=== PATIENT | male | born 1970 | race Caucasian/White ===

== ENCOUNTER 2016-10-25 08:24 | Inpatient (IN) | payer OTHER ==
[~2016-10-25] VITALS: Ht 198.1 cm; Wt 133.0 kg
[2016-10-25] VITALS (22 sets, daily range): BP systolic 91–133; BP diastolic 41–108
--- NOTE | ~2016-10-25 | 2DMMODE ---
[facility] [address] [place] [address] 2 D/M-MODE ECHOCARDIOGRAM Name: KATERINAGLO Hector Room #: 242-P ADM IN ..#: [id number] Admission: 10/25/16 Attend Phys: Navarro Jones Discharge: Date of : 72 Date of Service: 10/25/162058 Report #: [id number] THIS REPORT FOR: //name// APPROVED REPORT Study performed: 10/25/2016 18:38:06 EXAM: Comprehensive 2D, Doppler, and color-flow Echocardiogram Patient Location: ICU Room #: 242 Blood Pressure: 100/59 mmHg HR: 98 bpm Other Information Study Quality: Good Indications Diabetes Chest Pain 2D Dimensions IVC: 24.00 mm Volumes Left Atrial Volume (Systole) Single Plane 4CH: 85.32 mL Single Plane 2CH: 74.09 mL LA ESV Index: 32.00 mL/m2 Pulmonary Valve PV Peak Brennon.: 0.78 m/s PV Peak Gr.: 2.41 mmHg Tricuspid Valve TR Peak Brennon.: 3.23 m/s RAP Estimate: 10.00 mmHg TR Peak Gr.: 41.81 mmHg Left Ventricle Left ventricle is borderline dilated. There is akinesis in the apical wall. There is akinesis in the apical septal wall. There is severe hypokinesis in the apical lateral wall. There is moderate to severe hypokinesis in the mid-anterolateral wall. There is akinesis in the inferior wall. There is severe hypokinesis in the mid-anterior wall. There is severe hypokinesis in the posterior wall. There is normal [facility] [address] [place] [address] 2 D/M-MODE ECHOCARDIOGRAM Name: GLO BORGES Hector Room #: 242-P ADM IN [facility].#: [id number] Admission: 10/25/16 Attend Phys: Navarro Jones Discharge: Date of : 72 Date of Service: 10/25/162058 Report #: [id number] left ventricular wall thickness. Left ventricular ejection fraction is severely decreased. LVEF is 25-30%. Diastolic cannot be accurately assessed. Right Ventricle The right ventricle is normal size. The right ventricular systolic function is normal. Atria The left atrium size is normal. The right atrium size is normal. Aortic Valve The aortic valve is normal in structure. No aortic regurgitation is present. There is no aortic valvular stenosis. Mitral Valve The mitral valve is normal in structure. Moderate mitral regurgitation. No evidence of mitral valve stenosis. Tricuspid Valve The tricuspid valve is normal in structure. There is no tricuspid valve stenosis. Mild tricuspid regurgitation. Pulmonic Valve The pulmonary valve is normal in structure. There is no pulmonic valvular regurgitation. Great Vessels The aortic root is normal in size. IVC is dilated and collapses <50% with inspiration. Pericardium There is no pericardial effusion. <Conclusion> Left ventricle is borderline dilated. There is akinesis in the apical wall. There is akinesis in the apical septal wall. There is severe hypokinesis in the apical lateral wall. There is moderate to severe hypokinesis in the mid-anterolateral wall. There is akinesis in the inferior wall. There is severe hypokinesis in the mid-anterior wall. There is severe hypokinesis in the posterior wall. Left ventricular ejection fraction is severely decreased. [address] [address] 2 D/M-MODE ECHOCARDIOGRAM Name: GLO BORGES Room #: 242-P ADM IN M.R.#: [id number] Admission: 10/25/16 Attend Phys: Navarro Jones Discharge: Date of : 72 Date of Service: 10/25/162058 Report #: [id number] LVEF is 25-30%. The right ventricle is normal size. The right ventricular systolic function is normal. The aortic valve is normal in structure. The mitral valve is normal in structure. Moderate mitral regurgitation. The tricuspid valve is normal in structure. Mild tricuspid regurgitation. There is no tricuspid valve stenosis. There is no pericardial effusion. <ELECTRONICALLY SIGNED> By: Mike Ramon MD 10/25/162058 58 58 Mike Ramon MD /INF
--- NOTE | ~2016-10-25 | HC ---
[facility] [place] [address] CONSULTATION Name: GLO BORGES Room #: 242-P [facility] IN M.R.#: [id number] Admission: 10/25/16 Attend Phys: Wong De La Torre MD Discharge: 10/28/16 Date of : 72 Report #: [id number] THIS REPORT FOR: //name// CC: Win De La Torre DATE OF SERVICE: 10/26/2016 NEPHROLOGY CONSULTATION ATTENDING PHYSICIAN: Dr. De La Torre. REASON FOR CONSULTATION: Diabetic nephropathy in the setting of acute SD. HISTORY OF PRESENT ILLNESS: This 46-year-old gentleman has had several months' history of worsening shortness of breath and is a heavy cigarette smoker, 1-2 packs a day plus marijuana. Over the last couple of weeks, his shortness of breath has gotten worse and he has started to have some wheezing. His shortness of breath worsened acutely yesterday morning, with some chest "tenderness", but no real feeling of pressure and he came to the emergency room feeling breathless. He was found to have evidence of congestive heart failure, then an elevated troponin. He was evaluated for pulmonary embolism and had 2 different dye loads for a CT angiogram looking for pulmonary emboli, but these did not show pulmonary emboli. Eventually, his troponin elevated and an echocardiogram showed diffuse hypokinesis with an ejection fraction of only 20% to 25%. He has known proteinuria and had been started on lisinopril for that by a retail sales manager at [facility] fairly recently. As far as he knows, his overall renal function has been close to normal. 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 Also had disk surgeries for low back syndrome, remote CVA with mild left hemiparesis and a possible history of hypertension. HOME MEDICATIONS: As listed include aspirin 81 mg daily, atorvastatin 40 mg daily, insulin, lisinopril 10 mg daily, omeprazole 40 mg daily, Percocet, Lyrica 150 mg b.i.d., tamsulosin 0.4 mg daily, Zanaflex p.r.n. and Chantix. FAMILY HISTORY: Sister and mother with diabetes. No complications noted. No heart disease in the family. SOCIAL HISTORY: Cigarettes and marijuana as mentioned. REVIEW OF SYSTEMS: GENERAL: He has been feeling somewhat poorly. EYES: His vision is fine. He has had no diagnosis or evidence of retinopathy. [facility] [address] [place] [address] CONSULTATION Name: GLO BORGES Room #: 242-P [facility] IN ..#: [id number] Admission: 10/25/16 Attend Phys: Wong De La Torre MD Discharge: 10/28/16 Date of : 72 Report #: [id number] He has seen an hand polisher. ENT: Hearing okay, swallows okay. Denies mouth sores or ulcers. ENDOCRINE: Diabetes, as mentioned. RESPIRATORY: Easily short-winded with chronic cough. No hemoptysis. CARDIAC: No previous history of heart problems or arrhythmias. GASTROINTESTINAL: He has had constipation, but no nausea, vomiting, diarrhea, bloody stool or hematemesis. GENITOURINARY: A little bit of difficulty with his urinary stream and he has been put on Flomax. NEUROLOGIC: Poorly defined remote possible CVA and neuropathy, particularly in his feet. PHYSICAL EXAMINATION: GENERAL: This is a very anxious gentleman seen in the ICU, feeling like he cannot get his breath. His O2 sat is okay. SKIN: Unremarkable. SKELETAL: Slightly overweight. HEENT: Extraocular movements are full. Vision grossly intact. No scleral icterus. Hearing intact. Mucous membranes slightly dry. NECK: Supple. Neck veins do not appear to be distended, but the patient has difficulty sitting still for examination. CHEST: Shows crackles at the lung bases. HEART: Regular. ABDOMEN: Soft and nontender. EXTREMITIES: Show trace to 1+ peripheral edema. NEUROLOGIC: Shows some numbness in the feet. LABORATORY DATA: Urinalysis showed 2+ proteinuria. Hemoglobin was 14, down to 12.8; platelets are 290,000; white count 17.2 and no bands. Sodium 135, potassium 4.3, chloride 101, bicarbonate 23, BUN 23 and creatinine 1.4. Albumin 3.4. ASSESSMENT AND PLAN: 1. Diabetic nephropathy. He has underlying diabetic nephropathy with proteinuria. He has been on lisinopril. Overall, his renal function is close to normal. He is a big fellow. Initial creatinine was 1.3. 2. Acute myocardial infarction. He has got an elevated troponin and markedly abnormal echo. He has gotten 2 dye loads and he is in some degree of congestive heart failure. Diuresis is appropriately being done. He did get a couple of liters of fluids initially and this may help protect him from dye nephropathy. He is on Flomax and I will continue that and we will check him with bladder scans to see if he is emptying his bladder. 3. Diabetes mellitus with peripheral neuropathy and nephropathy. 4. Cigarette smoking with probable underlying chronic obstructive pulmonary disease. 5. History of left forefoot amputation for diabetic foot infection. [facility] [address] [place] [address] CONSULTATION Name: GLO BORGES Room #: 242-P DIS IN M.R.#: [id number] Admission: 10/25/16 Attend Phys: Wong De La Torre MD Discharge: 10/28/16 Date of : 72 Report #: [id number] 6. History of pancreatitis. 7. History of low back surgery for disk disease. <ELECTRONICALLY SIGNED> By: Chandu Bedoya MD 10/29/16 1114 1118 2326 Chandu Bedoya MD /nt
--- NOTE | ~2016-10-25 | EKG ---
[address] [place] [address] ELECTROCARDIOGRAM REPORT Name: GLO BORGES Room #: 242-P ADM IN M.R.#: [id number] Admission: 10/25/16 Attend Phys: Wong De La Torre MD Discharge: Date of : 72 Report #: [id number] THIS REPORT FOR: //name// [facility] ED Test Date: 2016-10-25 Test Time: 09:05:48 Pat Name: GLO BORGES Department: Room: 242 Gender: M Director Of Admissions: Joel ROBERT : 1970 Requested By: Enedina Blanton Order Number: [id number] MD: Cheko Nguyễn Measurements Intervals Bureau Rate: 125 P: 49 MD: 143 QRS: 25 QRSD: 103 T: 184 QT: 313 QTc: 452 Interpretive Statements Sinus tachycardia Probable anteroseptal infarct, recent Lateral ST and T wave abnormality No previous ECG available for comparison Electronically Signed On 10-27-2016 8:31:42 CDT by Cheko Nguyễn [email or web address] <ELECTRONICALLY SIGNED> By: Cheko Nguyễn MD, [facility] 10/27/16 0831 D: [id number] 4 Cheko Nguyễn MD, FAC /EPI
--- NOTE | ~2016-10-25 | CATHLAB ---
[facility] [address] [address] INVASIVE PROCEDURE REPORT Name: GLO BORGES Room #: 242-P [facility] IN M.R.#: [id number] Admission: 10/25/16 Attend Phys: Navarro Jones Discharge: 10/28/16 Date of : 72 Date of Service: 10/28/16 0955 Report #: [id number] THIS REPORT FOR: //name// CC: Win De La Torre DATE OF SERVICE: 10/27/2016 INDICATIONS: This is a 46-year-old male patient with non-ST segment elevation myocardial infarction and pulmonary edema. PROCEDURES: 1. Left heart catheterization. 2. Selective left and right coronary angiography. 3. Measurement of left ventricular end diastolic pressures. 4. Supervision of conscious sedation. FABRIC FINISHER: Mike Ramon M.D. BRIEF DESCRIPTION OF PROCEDURE: After informed consent was obtained, the patient was brought to the cardiac catheterization laboratory in stable condition. The patient's left groin was prepped and draped in the usual sterile manner after which lidocaine was then instilled. Utilizing a modified Seldinger technique, the left femoral artery was then accessed. Under fluoroscopic visualization using selective coronary catheters, the right and left coronaries were opacified and visualized. The right ventriculogram was likewise imaged per standard protocol with EDP being measured. Subsequent to this, the sheath was removed, hemostasis achieved. The patient tolerated the procedure well. There were no complications. FINDINGS: 1. Rhythm: The patient's rhythm was sinus throughout the entire procedure. 2. Hemodynamics: a. Aortic pressure 138/74. b. Left ventricular end diastolic pressure is 40-45. 3. Fluoroscopy: Under fluoroscopic visualization, there was extensive calcific plaquing along the epicardial coronary arteries with no calcific plaquing on the valvular or intramyocardial structures of the heart. 4. Angiography: This is a left coronary dominant system. a. Left main is of normal origin and caliber, trifurcates in left anterior descending, ramus intermedius and left circumflex. He has mild luminal irregularities without high grade flow limiting lesions. b. Left anterior descending is a small caliber type 2-vessel, which has a -95% lesion in its proximal mid portion. It then tapers down to a less than 0.5 mm vessel as a string as it courses in the anterior interventricular sulcus. The first diagonal branch is a small caliber vessel, which has a [facility] [address] [place] [address] INVASIVE PROCEDURE REPORT Name: GLO BORGES Room #: 242-P [facility] IN ..#: [id number] Admission: 10/25/16 Attend Phys: Navarro Jones Discharge: 10/28/16 Date of : 72 Date of Service: 10/28/16 0955 Report #: [id number] proximal lesion and diffuse irregularities throughout its course. c. Left circumflex is a small moderate caliber vessel proximally and rapidly tapers to a small string like terminal portion of the posterior wall, giving rise to posterior descending artery. Posterolateral branch and posterior descending artery have 95% stenosis proximally. These vessels are less than 0.5 mm in diameter. The first marginal branch is subtotally occluded. The second marginal branch has diffuse irregularities of at least 50-60% with a focal segment of 90%. This vessel is also less than 0.5 mm in diameter. d. Ramus intermedius is a small, highly diffusely diseased vessel, which is less than 0.5 mm in diameter. e. Right coronary artery is a small nondominant vessel with proximal high-grade lesion. It then terminates at the acute margin giving rise to RV marginal branch, which is diffusely diseased, at least 60% irregularities. IMPRESSION: 1. Coronary artery disease, severe, diffuse with focal high grade lesions in diminutive vessels, not amenable to prison results with percutaneous or surgical revascularization. 2. Abnormal hemodynamics with elevated left ventricular end-diastolic pressures. <ELECTRONICALLY SIGNED> By: Mike Ramon MD 10/30/16 1343 0955 2334 Mike Ramon MD /nt
--- NOTE | ~2016-10-25 | HC ---
[facility] [place] [address] CONSULTATION Name: GLO BORGES Room #: 242-P [facility] IN M.R.#: [id number] Admission: 10/25/16 Attend Phys: Wong De La Torre MD Discharge: Date of : 72 Report #: [id number] THIS REPORT FOR: //name// CC: Win De La Torre PRIMARY PHYSICIAN: Dr. Garcia at [facility]. REFERRAL PHYSICIAN: Dr. De La Torre. REASON FOR REFERRAL: Acute respiratory distress. HISTORY OF PRESENT ILLNESS: The patient is a 46-year-old white male who presents to the emergency room with progressive dyspnea. Since admission, he was found to be in severe respiratory distress. A pulmonary consultation was requested. The patient smokes about 1 to 2 packs a day. He also smokes marijuana. However, has never been diagnosed with lung disease. He states that he was in his usual state of health until about May of this year, he started to develop episodic chest discomfort, cough and dyspnea. Over the last few weeks, dyspnea has progressively worsened where he presented to emergency room. Otherwise, denies any chest pain, productive cough, hemoptysis, nausea, vomiting, diarrhea. He has longstanding history of diabetes with presumed peripheral vascular disease, undergoing partial amputation of his left foot. In the interim, the patient underwent a CT chest angiogram, which showed no evidence of pulmonary embolus. Increase in pulmonary perivascular markings are noted. Chest x-ray shows increased vasculatures markings, otherwise no obvious infiltrates. Leg Doppler ultrasound was negative for DVT. PAST MEDICAL HISTORY: Notable for diabetes mellitus, with partial amputation of the left foot, allergic rhinitis, hypertension, tobacco abuse. PAST SURGICAL HISTORY: As mentioned above. ALLERGIES: Penicillin, which causes severe swelling. HOME MEDICATIONS: Aspirin, Zanaflex, Flomax, loratadine, Lyrica, Lipitor, Zestril, Chantix, omeprazole. FAMILY HISTORY: Noncontributory. [facility] [address] [place] [address] CONSULTATION Name: GLO BORGES Room #: 242-[facility] IN [facility].#: [id number] Admission: 10/25/16 Attend Phys: Wong De La Torre MD Discharge: Date of : 72 Report #: [id number] SOCIAL HISTORY: He is engaged. Tobacco use as mentioned above. Denies any tobacco abuse. He does smoke marijuana. He has been disabled due to diabetes and peripheral vascular disease along with partial amputation. REVIEW OF SYSTEMS: As mentioned above, otherwise 10-point system review negative. PHYSICAL EXAMINATION: GENERAL: He is awake, alert, in moderate respiratory distress. VITAL SIGNS: Temperature is 98 degrees Fahrenheit, pulse is 106, it was at 148, respiratory rate is 20s up to 30s, blood pressure is 94/61 mmHg, saturation is 90%. HEENT: Normocephalic, atraumatic. NECK: Supple, without any lymphadenopathy or thyromegaly. CHEST: Breath sounds are fair, mild coarse breath sounds at the bases. CARDIOVASCULAR: Heart sounds are distant. No obvious murmurs or gallop. There is no JVD, no carotid bruit. Pulses are 2+/4+ bilaterally. ABDOMEN: Soft, nontender, no organomegaly or masses felt. GENITOURINARY AND RECTAL: Deferred. EXTREMITIES: Remarkable for partial left foot amputation, otherwise no cyanosis, clubbing or edema. LABORATORY DATA: CT chest angiogram, chest x-ray and leg Doppler ultrasound as mentioned above. Lactate is 2.9 and NT-pro brain natriuretic peptide is 2082. D-dimer is 1.6. Troponin 0.5. EKG shows sinus tachycardia. Sodium 136, potassium 4.1, chloride 100, CO2 is 23, creatinine is 1.3, BUN is 14, glucose is 279. WBC is 17,200, hemoglobin is 14.0. Troponin is 0.5 as mentioned above. Albumin 3.4. WBC again 17,200 without a left shift. IMPRESSION: 1. Acute hypoxic respiratory failure in this 46-year-old white male. CT chest angiogram shows no evidence of pulmonary embolus or even infiltrates. Leg Doppler ultrasound was negative. His inflammatory mediators are elevated including D-dimer. BNP is also elevated. The patient has a history of tobacco abuse. I went through his CT chest angiogram, showing diffuse peribronchiolar thickening. Cause of the patient's profound respiratory distress is unclear. Findings per CT chest angiogram suggest possible pulmonary venous hypertension. With his history of tobacco use, the patient could have a component of chronic obstructive pulmonary disease. Viral or atypical infectious process is also considered. Collagen vascular disease is a remote possibility. 2. Tobacco abuse with possible chronic obstructive pulmonary disease. [facility] [address] [place] [address] CONSULTATION Name: GLO BORGES Hector Room #: 242-P ADM IN M.R.#: [id number] Admission: 10/25/16 Attend Phys: Wong De La Torre MD Discharge: Date of : 72 Report #: [id number] 3. Renal insufficiency, presume acute. In light of the patient receiving contrast for CT chest angiogram, we will need to monitor this closely. IV fluids and maintaining good urine output is recommended. 4. Diabetes mellitus type 2 with hyperglycemia. Electrolytes on admission revealed slight increase in anion gap. Anion gap is actually relatively normal with bicarbonate at 23. 5. Leukocytosis as mentioned above. This might represent either reactive or possible infectious processes including a typical infection. 6. Elevated troponin, suspect non-ST wave myocardial infarction. The patient does have risk factor for coronary artery disease with a history of tobacco use, diabetes mellitus. RECOMMENDATIONS: We would treat for presumed chronic obstructive lung disease with steroids and bronchodilators. We will start broad-spectrum antibiotics. Continue noninvasive ventilation as tolerated. Currently, he is having difficulty with. We will discontinue its use and keep saturation at 90% above with nasal canula or ____. <ELECTRONICALLY SIGNED> By: Chester Davila MD 10/27/16 1146 1733 0028 Chester Davila MD /nt
[2016-10-25 08:42] LABS: HEMATOCRIT 41.2 % (42.0-52.0); MCH 32.5 pg (26.0-34.0); MCV 95.7 fL (80.0-100.0); PLATELET COUNT 409 thou/uL (150-400); RDW 14.1 % (10.5-14.5); WBC 17.2 thou/uL (4.0-11.0)
[2016-10-25 08:43] LABS: MANUAL DIFF YES
[2016-10-25 08:54] LABS: ANION GAP 13 mmol/L (7-16); BUN 14 mg/dL (7-18); CALCIUM 8.4 mg/dL (8.5-10.1); CHLORIDE 100 mmol/L (98-107); CO2 23 mmol/L (21-32); CREATININE 1.3 mg/dL (0.7-1.3); GLUCOSE 379 mg/dL (74-106); POTASSIUM 4.1 mmol/L (3.5-5.1); SODIUM 136 mmol/L (136-145)
[2016-10-25 09:01] LABS: ALBUMIN 3.4 g/dL (3.4-5.0); ALKALINE PHOSPHATASE 110 U/L (46-116); DIRECT BILIRUBIN < 0.1 mg/dL (<0.1-0.3); SGOT 16 U/L (15-37); SGPT 19 U/L (30-65); TOTAL BILIRUBIN 0.3 mg/dL (<0.1-1.0); TOTAL PROTEIN 7.7 g/dL (6.4-8.2); TROPONIN-I 0.07 ng/mL (<0.04-0.07)
[2016-10-25 09:16] LABS: ABSOLUTE NEUTROPHILS 5.2 thou/uL (1.4-8.2); ATYPICAL LYMPHS 3 %; TOTAL CELL COUNT 100
[2016-10-25 10:02] LABS: URINE BILIRUBIN NEGATIVE (Negative); URINE BLOOD 2+ (Negative); URINE COLOR YELLOW; URINE GLUCOSE-RANDOM* 3+ (Negative); URINE KETONES NEGATIVE (Negative); URINE NITRITE NEGATIVE (Negative); URINE PROTEIN (DIPSTICK) 2+ (Negative); URINE SPECIFIC GRAVITY 1.025 (1.003-1.035); URINE UROBILINOGEN 0.2 E.U./dl (0.2-1.0)
[2016-10-25 10:14] LABS: CASTS None Seen /LPF (None Seen); CRYSTALS None Seen /LPF (None Seen); SQUAMOUS 4-10 Moderate /LPF (0-3); URINE RBC 3-10 Few /HPF (0-2); URINE WBC 0-5 Rare /HPF (0-5)
[2016-10-25 10:15] LABS: AMP/METHAMP Negative (Negative); BACTERIA 1-9 Few /HPF (None Seen); BARBITURATES Negative (Negative); BENZODIAZEPINES Negative (Negative); COCAINE Negative (Negative); METHADONE Negative (Negative); OPIATES Negative (Negative); PCP Negative (Negative); THC POSITIVE (Negative)
[2016-10-25] MEDS ORDERED: ZANAFLEX4 M1 PO (10:37)
[2016-10-25] MEDS ORDERED: FLOMAX0.4 MG PO (10:37)
[2016-10-25] MEDS ORDERED: ASPIR 8181 MG PO (10:37)
[2016-10-25] MEDS ORDERED: ATORVASTATIN CA40 MG PO (10:38)
[2016-10-25] MEDS ORDERED: LISINOPRIL10 MG PO (10:38)
[2016-10-25] MEDS ORDERED: LYRICA150 MG PO (10:38)
[2016-10-25] MEDS ORDERED: LORATIDINE 10 M10 M1 PO (10:38)
[2016-10-25] MEDS ORDERED: OMEPRAZOLE40 MG PO (10:39)
[2016-10-25] MEDS ORDERED: CHANTIX1 EACH PO (10:39)
[2016-10-25 12:00] LABS: APTT 24.2 Seconds (24.5-32.8)
[2016-10-25] MEDS ORDERED: LANTUS SUBQ (16:18)
[2016-10-25] MEDS ORDERED: PERCOCET 10-321 EACH PO (16:19)
[2016-10-25] MEDS ORDERED: HUMALOG100 UNIT/1 SUBQ (16:19)
[2016-10-25] MEDS ORDERED: SENNA8.6 MG PO (16:30)
[2016-10-26] VITALS (26 sets, daily range): BP systolic 86–150; BP diastolic 36–104
[2016-10-26 02:33] LABS: HEMATOCRIT 37.8 % (42.0-52.0); HEMOGLOBIN 12.8 gm/dL (14.0-18.0); MCH 32.2 pg (26.0-34.0); MCV 94.8 fL (80.0-100.0); RBC 3.98 mil/uL (4.50-6.00); RDW 13.9 % (10.5-14.5); WBC 13.4 thou/uL (4.0-11.0)
[2016-10-26 03:06] LABS: CALCIUM 7.6 mg/dL (8.5-10.1); CREATININE 1.4 mg/dL (0.7-1.3); POTASSIUM 4.3 mmol/L (3.5-5.1)
[2016-10-27] VITALS (33 sets, daily range): BP systolic 78–123; BP diastolic 40–81
[2016-10-27 04:09] LABS: GLYCOHEMOGLOBIN (HGB A1C) 9.5 % (4.8-5.6)
[2016-10-27 05:37] LABS: HEMATOCRIT 34.1 % (42.0-52.0); HEMOGLOBIN 11.7 gm/dL (14.0-18.0); MCH 32.5 pg (26.0-34.0); MCHC 34.5 g/dL (28.0-37.0); MCV 94.2 fL (80.0-100.0); PLATELET COUNT 274 thou/uL (150-400); RBC 3.62 mil/uL (4.50-6.00); RDW 13.8 % (10.5-14.5); WBC 16.5 thou/uL (4.0-11.0)
[2016-10-27 05:38] LABS: MANUAL DIFF YES
[2016-10-27 05:48] LABS: ALBUMIN 2.9 g/dL (3.4-5.0); CALCIUM 8.1 mg/dL (8.5-10.1); CREATININE 1.3 mg/dL (0.7-1.3)
[2016-10-27 08:51] LABS: ABSOLUTE NEUTROPHILS 15.3 thou/uL (1.4-8.2); TOTAL CELL COUNT 100
[2016-10-27 08:52] LABS: ANISOCYTOSIS SLIGHT
[2016-10-28] VITALS (19 sets, daily range): BP systolic 84–126; BP diastolic 45–84
[2016-10-28 04:41] LABS: HEMATOCRIT 33.3 % (42.0-52.0); HEMOGLOBIN 11.6 gm/dL (14.0-18.0); MCH 32.9 pg (26.0-34.0); MCHC 34.8 g/dL (28.0-37.0); MCV 94.7 fL (80.0-100.0); RBC 3.51 mil/uL (4.50-6.00); RDW 13.7 % (10.5-14.5); WBC 13.5 thou/uL (4.0-11.0)
[2016-10-28 04:59] LABS: ALBUMIN 2.9 g/dL (3.4-5.0); CALCIUM 7.6 mg/dL (8.5-10.1); CREATININE 1.5 mg/dL (0.7-1.3); PHOSPHORUS 3.3 mg/dL (2.5-4.9); POTASSIUM 4.3 mmol/L (3.5-5.1)
[2016-10-28] MEDS ORDERED: COREG3.125 MG PO (11:16)
[2016-10-28] MEDS ORDERED: LASIX 20 MG TAB20 MG PO (11:16)
[2016-10-28] MEDS ORDERED: NITROGLYCERIN0.4 MG SUBLING (11:17)
[2016-10-28] MEDS ORDERED: KLOR-CON 1010 MEQ PO (11:17)
[2016-10-28] MEDS ORDERED: IMDUR 30 MG TAB30 M1 PO (11:17)
[2016-10-28] MEDS ORDERED: XANAX1 MG PO (11:32)
[2016-10-28 23:07] LABS: INFLUENZA B Negative (Negative); METAPNEUMOVIRUS Negative (Negative)
== END 2016-10-28 12:39 | disposition home or self-care (01) | DRG 871 ==
LOC: ER 08:24 → EROBS 12:10 → ICU 12:10
PROVIDERS: Emergency Medicine; Family Medicine; Internal Medicine Nephrology; Internal Medicine Pulmonary Disease
DX: A41.9 Sepsis, unspecified organism (principal); I50.21 Acute systolic (congestive) heart failure; I21.4 Non-ST elevation (NSTEMI) myocardial infarction; J18.9 Pneumonia, unspecified organism; J96.01 Acute respiratory failure with hypoxia; N17.9 Acute kidney failure, unspecified; I69.354 Hemiplegia and hemiparesis following cerebral infarction affecting left non-dominant side; I13.0 Hypertensive heart and chronic kidney disease with heart failure and stage 1 through stage 4 chronic kidney disease, or unspecified chronic kidney disease; I73.9 Peripheral vascular disease, unspecified; R59.9 Enlarged lymph nodes, unspecified; E11.65 Type 2 diabetes mellitus with hyperglycemia; I25.10 Atherosclerotic heart disease of native coronary artery without angina pectoris; F17.210 Nicotine dependence, cigarettes, uncomplicated; E66.9 Obesity, unspecified; T38.0X5A Adverse effect of glucocorticoids and synthetic analogues, initial encounter; J44.9 Chronic obstructive pulmonary disease, unspecified; E11.40 Type 2 diabetes mellitus with diabetic neuropathy, unspecified; K21.9 Gastro-esophageal reflux disease without esophagitis; M13.842 Other specified arthritis, left hand; E11.22 Type 2 diabetes mellitus with diabetic chronic kidney disease; N18.9 Chronic kidney disease, unspecified; F12.90 Cannabis use, unspecified, uncomplicated; K59.09 Other constipation; M13.841 Other specified arthritis, right hand; E11.42 Type 2 diabetes mellitus with diabetic polyneuropathy; Y92.89 Other specified places as the place of occurrence of the external cause; Z88.0 Allergy status to penicillin; Z79.82 Long term (current) use of aspirin; Z79.899 Other long term (current) drug therapy; Z79.4 Long term (current) use of insulin; Z89.432 Acquired absence of left foot; Z68.33 Body mass index [BMI] 33.0-33.9, adult; Z87.898 Personal history of other specified conditions; Z83.3 Family history of diabetes mellitus
CPT/HCPCS: 10078

== ENCOUNTER 2017-09-14 11:40 | Emergency (ER) | payer OTHER ==
[~2017-09-14] VITALS: Ht 198.1 cm; Wt 127.0 kg
[~2017-09-14 11:40] MED LIST: ASPIR 8181 MG PO; ATORVASTATIN CA40 MG PO; CHANTIX1 EACH PO; COREG3.125 MG PO; FLOMAX0.4 MG PO; HUMALOG100 UNIT/1 SUBQ; IMDUR 30 MG TAB30 M1 PO; KLOR-CON 1010 MEQ PO; LANTUS SUBQ; LASIX 20 MG TAB20 MG PO; LISINOPRIL10 MG PO; LORATIDINE 10 M10 M1 PO; LYRICA150 MG PO; NITROGLYCERIN0.4 MG SUBLING; OMEPRAZOLE40 MG PO; PERCOCET 10-321 EACH PO; SENNA8.6 MG PO; XANAX1 MG PO; ZANAFLEX4 M1 PO
[2017-09-14 13:29] LABS: ABSOLUTE NEUTROPHILS 5.1 thou/uL (1.4-8.2); BASOPHILS 1.7 % (0.0-2.0); EOSINOPHILS 2.4 % (0.0-3.0); HEMATOCRIT 42.3 % (42.0-52.0); HEMOGLOBIN 15.1 gm/dL (14.0-18.0); LYMPHOCYTES 29.9 % (24.0-44.0); MCH 33.5 pg (26.0-34.0); MCHC 35.6 g/dL (28.0-37.0); MCV 94.1 fL (80.0-100.0); MONOCYTES 6.4 % (1.0-8.0); PLATELET COUNT 205 thou/uL (150-400); POLYS 59.6 % (36.0-66.0); RDW 13.5 % (10.5-14.5); WBC 8.6 thou/uL (4.0-11.0)
[2017-09-14 13:35] LABS: CALCIUM 8.6 mg/dL (8.5-10.1); CREATININE 1.2 mg/dL (0.7-1.3); POTASSIUM 4.4 mmol/L (3.5-5.1)
[2017-09-14] MEDS ORDERED: CLEOCIN HCL150 MG PO (14:34)
[2017-09-14] MEDS ORDERED: TRAMADOL 50 MG50 MG PO (15:12)
[2017-09-14 15:18] VITALS: BP 115/68
== END 2017-09-14 15:21 | disposition home or self-care (01) ==
LOC: ER 11:40
PROVIDERS: Nurse Practitioner Family
DX: E11.621 Type 2 diabetes mellitus with foot ulcer (principal); E87.1 Hypo-osmolality and hyponatremia; L03.115 Cellulitis of right lower limb; F17.210 Nicotine dependence, cigarettes, uncomplicated; K21.9 Gastro-esophageal reflux disease without esophagitis; K59.09 Other constipation; E11.40 Type 2 diabetes mellitus with diabetic neuropathy, unspecified; M13.842 Other specified arthritis, left hand; M13.841 Other specified arthritis, right hand; Z88.0 Allergy status to penicillin; Z86.73 Personal history of transient ischemic attack (TIA), and cerebral infarction without residual deficits; Z79.4 Long term (current) use of insulin

== ENCOUNTER 2018-02-11 13:59 | Emergency (ER) | payer OTHER ==
[~2018-02-11] VITALS: Ht 198.1 cm; Wt 104.3 kg
[~2018-02-11 13:59] MED LIST changes: +CLEOCIN HCL150 MG PO; +TRAMADOL 50 MG50 MG PO
[2018-02-11 14:42] LABS: ABSOLUTE NEUTROPHILS 6.6 thou/uL (1.4-8.2); BASOPHILS 1.1 % (0.0-2.0); HEMATOCRIT 45.4 % (42.0-52.0); HEMOGLOBIN 15.7 gm/dL (14.0-18.0); LYMPHOCYTES 21.8 % (24.0-44.0); MCH 33.3 pg (26.0-34.0); MCHC 34.7 g/dL (28.0-37.0); MONOCYTES 6.3 % (1.0-8.0); PLATELET COUNT 224 thou/uL (150-400); POLYS 67.8 % (36.0-66.0); RBC 4.73 mil/uL (4.50-6.00); RDW 13.8 % (10.5-14.5); WBC 9.8 thou/uL (4.0-11.0)
[2018-02-11 14:53] LABS: CALCIUM 8.5 mg/dL (8.5-10.1); POTASSIUM 4.6 mmol/L (3.5-5.1)
[2018-02-11 15:00] LABS: ALBUMIN 2.4 g/dL (3.4-5.0); TOTAL BILIRUBIN 0.3 mg/dL (<0.1-1.0); TOTAL PROTEIN 6.1 g/dL (6.4-8.2)
[2018-02-11 15:50] LABS: URINE BILIRUBIN NEGATIVE (Negative); URINE BLOOD 2+ (Negative); URINE COLOR YELLOW; URINE GLUCOSE-RANDOM* 3+ (Negative); URINE KETONES NEGATIVE (Negative); URINE LEUKOCYTES-REFLEX NEGATIVE (Negative); URINE NITRITE-REFLEX NEGATIVE (Negative); URINE PROTEIN (DIPSTICK) 3+ (Negative); URINE SPECIFIC GRAVITY >= 1.030 (1.005-1.035); URINE UROBILINOGEN 0.2 E.U./dl (0.2-1.0)
[2018-02-11 15:52] LABS: URINE CLARITY HAZY
[2018-02-11 15:55] LABS: SQUAMOUS None Seen /LPF (0-3); URINE RBC 3-10 Few /HPF (0-2); URINE WBC-REFLEX 0-5 Rare /HPF (0-5)
[2018-02-11 15:56] LABS: BACTERIA-REFLEX 1-9 Few /HPF (None Seen); HYALINE CASTS 0-3 Few /LPF (None Seen)
[2018-02-11 15:57] LABS: CRYSTALS None Seen /LPF (None Seen); MUCUS 4-6 Moderate strn/LPF (None Seen)
[2018-02-11] MEDS ORDERED: LIORESAL 10 MG10 MG PO (16:06)
[2018-02-11] MEDS ORDERED: DEMADEX20 MG PO (16:06)
[2018-02-11] MEDS ORDERED: ZOFRAN4 MG PO (16:44)
[2018-02-11] MEDS ORDERED: TRAMADOL 50 MG50 MG PO (16:44)
[2018-02-11] MEDS ORDERED: BENTYL 20 MG TA20 M1 PO (16:44)
[2018-02-11] MEDS ORDERED: FLAGYL500 MG PO (16:44)
[2018-02-11] MEDS ORDERED: XARELTO20 MG PO (17:04)
== END 2018-02-11 17:43 | disposition home or self-care (01) ==
LOC: ER 13:59
PROVIDERS: Emergency Medicine
DX: K52.9 Noninfective gastroenteritis and colitis, unspecified (principal); F17.210 Nicotine dependence, cigarettes, uncomplicated; K21.9 Gastro-esophageal reflux disease without esophagitis; E11.40 Type 2 diabetes mellitus with diabetic neuropathy, unspecified; G62.9 Polyneuropathy, unspecified; M19.042 Primary osteoarthritis, left hand; M19.041 Primary osteoarthritis, right hand; Z86.73 Personal history of transient ischemic attack (TIA), and cerebral infarction without residual deficits; Z88.0 Allergy status to penicillin; Z79.4 Long term (current) use of insulin

== ENCOUNTER 2018-06-01 09:04 | Inpatient (IN) | payer OTHER ==
[~2018-06-01] VITALS: Ht 198.1 cm; Wt 131.1 kg
--- NOTE | ~2018-06-01 | P ---
[facility] [place] [address] PROCEDURE REPORT Name: KATERINAGLO EVANGELISTA Room #: 221-P [facility] IN M.R.#: [id number] Admission: 06/01/18 Attend Phys: Vikash Avila MD Discharge: 06/03/18 Date of : 72 Report #: [id number] THIS REPORT FOR: //name// CC: Vikash GALARZA Skip Galarza INPATIENT COLONOSCOPY BRIEF HISTORY: The patient is a 47-year-old male who was admitted to [facility] with rectal bleeding. He has a history of a CT scan done several months ago, which revealed thickening of the sigmoid colon and the rectum. Combined with his rectal bleeding, there is concern he may have inflammatory bowel disease. PREOPERATIVE DIAGNOSES: Rectal bleeding and abnormal CT of the colon. POSTOPERATIVE DIAGNOSES: Rectal bleeding and abnormal CT of the colon. MEDICATIONS: Deep sedation with propofol per anesthesia. SPECIMEN: None. ESTIMATED BLOOD LOSS: None. PROCEDURE: Colonoscopy to mid transverse colon. FINDINGS: Prior to propofol sedation, procedure of colonoscopy discussed with the patient as well as potential risks and its complications. He indicates he understands and desires to proceed. DESCRIPTION OF PROCEDURE: With the patient in left lateral decubitus position, digital examination was completed which revealed no abnormalities. Subsequently, Pentax video colonoscope was introduced into the rectum and advanced under direct vision. As we advanced the scope, we ran into pools of liquidy yellow stool material. There was some particulate matter, which would not allow simply aspirate away all the liquidy material. As we advanced the scope into the transverse colon, in particular the mid transverse colon, the prep became so bad that we could not safely advance the scope forward. At that point, the scope was slowly withdrawn and careful circumferential views obtained. We tried to clean up as well as we could, but because of particulate matter, the scope kept clogging. As we withdrew the scope, we could wash and irrigate and see many areas of mucosa, but not all the mucosa could be visualized due to the poor prep. However, within the limitations of prep, which was a little bit better in the descending and sigmoid colon, the mucosa visualized was within normal limits. There was no evidence of inflammatory bowel disease. Also, no blood was seen during this examination. The scope was [address] [address] PROCEDURE REPORT Name: KATERINAGLO EVANGELISTA Room #: 221-P DIS IN M.R.#: [id number] Admission: 06/01/18 Attend Phys: Vikash Avila MD Discharge: 06/03/18 Date of : 72 Report #: [id number] withdrawn in the rectum, which was cleaned up fairly well. No mucosal abnormalities were seen. Upon retroflexion, no abnormalities were seen. I did not see evidence of hemorrhoids. Scope was withdrawn. The patient tolerated the procedure well. DISPOSITION: Colonoscopy not completed of the cecum due to poor prep. With regards to bleeding, no blood or bleeding site was seen. With regard to the abnormal CT, no endoscopic evidence of inflammatory bowel disease in the descending or sigmoid colon or the rectum. However, this exam, due to poor prep is an inadequate exam for colorectal screening and the patient should return at a later date for a well prep colonoscopy for colorectal screening. <ELECTRONICALLY SIGNED> By: Win Hoff MD 06/04/18 1030 1250 15 Win Hoff MD /nt
--- NOTE | ~2018-06-01 | EKG ---
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: : 1970 Requested By: Andriy Lafleur Order Number: [id number] MD: Silvestre Petit Measurements Intervals [place] Rate: 98 P: 43 NE: 162 QRS: 4 QRSD: 86 T: 89 QT: 339 QTc: 433 Interpretive Statements Sinus rhythm Probable left atrial enlargement Anterior infarct, old Nonspecific T abnormalities, lateral leads Compared to ECG 10/25/2016 09:05:48 Electronically Signed On 06-01-2018 13:02:54 REGIONAL PLANNER by Silvestre Petit [email or web address] <ELECTRONICALLY SIGNED> By: Silvestre Petit MD 06/01/18 1302 7 Silvestre Petit MD /AJVIER
[~2018-06-01 09:04] MED LIST changes: +BENTYL 20 MG TA20 M1 PO; +DEMADEX20 MG PO; +FLAGYL500 MG PO; +LIORESAL 10 MG10 MG PO; +XARELTO20 MG PO; +ZOFRAN4 MG PO
[2018-06-01 09:05] VITALS: BP 107/72
[2018-06-01 09:45] LABS: ABSOLUTE NEUTROPHILS 8.6 thou/uL (1.4-8.2); BASOPHILS 0.6 % (0.0-2.0); EOSINOPHILS 6.4 % (0.0-3.0); HEMATOCRIT 45.3 % (42.0-52.0); HEMOGLOBIN 15.4 gm/dL (14.0-18.0); LYMPHOCYTES 19.2 % (24.0-44.0); MCH 32.9 pg (26.0-34.0); MCHC 34.1 g/dL (28.0-37.0); MCV 96.6 fL (80.0-100.0); PLATELET COUNT 222 thou/uL (150-400); POLYS 66.8 % (36.0-66.0); RBC 4.69 mil/uL (4.50-6.00); RDW 14.2 % (10.5-14.5); WBC 12.9 thou/uL (4.0-11.0)
[2018-06-01 09:53] LABS: CALCIUM 8.9 mg/dL (8.5-10.1); CREATININE 1.9 mg/dL (0.7-1.3); POTASSIUM 4.1 mmol/L (3.5-5.1)
[2018-06-01 09:55] LABS: URINE BILIRUBIN NEGATIVE (Negative); URINE BLOOD 2+ (Negative); URINE CLARITY CLEAR; URINE COLOR YELLOW; URINE GLUCOSE-RANDOM* 3+ (Negative); URINE KETONES NEGATIVE (Negative); URINE LEUKOCYTES-REFLEX NEGATIVE (Negative); URINE NITRITE-REFLEX NEGATIVE (Negative); URINE PROTEIN (DIPSTICK) 2+ (Negative); URINE SPECIFIC GRAVITY 1.025 (1.005-1.035); URINE UROBILINOGEN 0.2 E.U./dl (0.2-1.0)
[2018-06-01 09:59] LABS: TOTAL BILIRUBIN 0.3 mg/dL (<0.1-1.0); TOTAL PROTEIN 7.6 g/dL (6.4-8.2)
[2018-06-01 10:03] LABS: SQUAMOUS 4-10 Moderate /LPF (0-3)
[2018-06-01 10:04] LABS: BACTERIA-REFLEX None Seen /HPF (None Seen); CASTS None Seen /LPF (None Seen); CRYSTALS None Seen /LPF (None Seen); URINE RBC 0-2 Rare /HPF (0-2); URINE WBC-REFLEX 0-5 Rare /HPF (0-5)
[2018-06-01 10:12] LABS: LIPASE 98 U/L (73-393); TROPONIN-I <0.06 ng/mL (<0.06)
[2018-06-01 11:24] LABS: APTT 34.8 Seconds (24.5-32.8); INR 1.1
[2018-06-01 13:19] VITALS: BP 107/49
[2018-06-01 13:37] VITALS: BP 128/82
[2018-06-01 15:25] VITALS: BP 108/78
[2018-06-01 19:51] VITALS: BP 101/67
[2018-06-02 04:21] VITALS: BP 118/67
[2018-06-02 05:27] LABS: CALCIUM 8.3 mg/dL (8.5-10.1); CREATININE 1.4 mg/dL (0.7-1.3); POTASSIUM 3.8 mmol/L (3.5-5.1)
[2018-06-02 05:47] LABS: HEMATOCRIT 40.6 % (42.0-52.0); HEMOGLOBIN 13.9 gm/dL (14.0-18.0); MCH 33.1 pg (26.0-34.0); MCHC 34.2 g/dL (28.0-37.0); MCV 96.9 fL (80.0-100.0); RBC 4.19 mil/uL (4.50-6.00); RDW 14.2 % (10.5-14.5); WBC 10.1 thou/uL (4.0-11.0)
[2018-06-02 07:37] VITALS: BP 108/61
[2018-06-02 14:30] VITALS: BP 105/72
[2018-06-02 20:00] VITALS: BP 124/79
[2018-06-03 07:21] LABS: HEMATOCRIT 39.2 % (42.0-52.0); HEMOGLOBIN 13.3 gm/dL (14.0-18.0); MCH 32.4 pg (26.0-34.0); MCHC 33.9 g/dL (28.0-37.0); MCV 95.5 fL (80.0-100.0); RBC 4.1 mil/uL (4.50-6.00); RDW 13.9 % (10.5-14.5); WBC 8.4 thou/uL (4.0-11.0)
[2018-06-03 07:35] LABS: CALCIUM 8.3 mg/dL (8.5-10.1); CREATININE 1.2 mg/dL (0.7-1.3); POTASSIUM 3.9 mmol/L (3.5-5.1)
[2018-06-03 07:58] VITALS: BP 114/81
[2018-06-03] MEDS ORDERED: FLAGYL500 M1 PO ×2 (16:02→16:08)
[2018-06-03] MEDS ORDERED: LOPERAMIDE 2 MG2 M1 PO ×2 (16:05→16:08)
[2018-06-03 16:15] VITALS: BP 114/81
[2018-06-03 16:27] VITALS: BP 114/81
== END 2018-06-03 16:35 | disposition home or self-care (01) | DRG 378 ==
LOC: ER 09:04 → EROBS 11:44 → 4W 13:38 → SICU 06-02 18:43
PROVIDERS: Hospitalist; Physician Assistant
PROC: 0DJD8ZZ Inspection of Lower Intestinal Tract, Via Natural or Artificial Opening Endoscopic (ICD-10-PCS; principal; 2018-06-03)
DX: K92.2 Gastrointestinal hemorrhage, unspecified (principal); N17.9 Acute kidney failure, unspecified; I69.354 Hemiplegia and hemiparesis following cerebral infarction affecting left non-dominant side; I13.0 Hypertensive heart and chronic kidney disease with heart failure and stage 1 through stage 4 chronic kidney disease, or unspecified chronic kidney disease; K59.09 Other constipation; K21.9 Gastro-esophageal reflux disease without esophagitis; E11.40 Type 2 diabetes mellitus with diabetic neuropathy, unspecified; M19.042 Primary osteoarthritis, left hand; M19.041 Primary osteoarthritis, right hand; E78.5 Hyperlipidemia, unspecified; F12.90 Cannabis use, unspecified, uncomplicated; J44.9 Chronic obstructive pulmonary disease, unspecified; I50.9 Heart failure, unspecified; D72.829 Elevated white blood cell count, unspecified; N18.9 Chronic kidney disease, unspecified; I25.10 Atherosclerotic heart disease of native coronary artery without angina pectoris; Z79.4 Long term (current) use of insulin; Z95.820 Peripheral vascular angioplasty status with implants and grafts; Z89.422 Acquired absence of other left toe(s); Z88.0 Allergy status to penicillin; Z86.718 Personal history of other venous thrombosis and embolism; Z79.82 Long term (current) use of aspirin; Z79.899 Other long term (current) drug therapy; Z28.21 Immunization not carried out because of patient refusal
CPT/HCPCS: 10045; 15002; 62110; 62900; 70005

== ENCOUNTER 2018-08-23 14:37 | Emergency (ER) | payer OTHER ==
[~2018-08-23] VITALS: Ht 198.1 cm; Wt 127.0 kg
[~2018-08-23 14:37] MED LIST changes: +FLAGYL500 M1 PO; +LOPERAMIDE 2 MG2 M1 PO
[2018-08-23 16:15] LABS: ABSOLUTE NEUTROPHILS 4.3 thou/uL (1.4-8.2); BASOPHILS 0.5 % (0.0-2.0); EOSINOPHILS 3.7 % (0.0-3.0); HEMATOCRIT 43.2 % (42.0-52.0); HEMOGLOBIN 15.1 gm/dL (14.0-18.0); LYMPHOCYTES 32.8 % (24.0-44.0); MCH 33.3 pg (26.0-34.0); MCV 95.2 fL (80.0-100.0); MONOCYTES 6.7 % (1.0-8.0); PLATELET COUNT 204 thou/uL (150-400); POLYS 56.3 % (36.0-66.0); RBC 4.54 mil/uL (4.50-6.00); RDW 14.4 % (10.5-14.5); WBC 7.6 thou/uL (4.0-11.0)
[2018-08-23 16:18] LABS: ANION GAP 6 mmol/L (7-16); BUN 14 mg/dL (7-18); CALCIUM 8.7 mg/dL (8.5-10.1); CHLORIDE 98 mmol/L (98-107); CO2 30 mmol/L (21-32); CREATININE 1.3 mg/dL (0.7-1.3); GLUCOSE 351 mg/dL (74-106); POTASSIUM 4.7 mmol/L (3.5-5.1); SODIUM 134 mmol/L (136-145)
[2018-08-23 16:27] LABS: ALBUMIN 2.6 g/dL (3.4-5.0); SGOT 24 U/L (15-37); SGPT 18 U/L (30-65); TOTAL BILIRUBIN 0.4 mg/dL (<0.1-1.0); TOTAL PROTEIN 6.7 g/dL (6.4-8.2); TROPONIN-I <0.06 ng/mL (<0.06)
[2018-08-23 16:29] LABS: MAGNESIUM 1.7 mg/dL (1.8-2.4)
[2018-08-23 17:03] LABS: URINE BILIRUBIN NEGATIVE (Negative); URINE BLOOD 2+ (Negative); URINE CLARITY CLEAR; URINE COLOR YELLOW; URINE GLUCOSE-RANDOM* 1+ (Negative); URINE KETONES NEGATIVE (Negative); URINE LEUKOCYTES-REFLEX NEGATIVE (Negative); URINE NITRITE-REFLEX NEGATIVE (Negative); URINE PROTEIN (DIPSTICK) 2+ (Negative); URINE UROBILINOGEN 0.2 E.U./dl (0.2-1.0)
[2018-08-23 17:11] LABS: AMP/METHAMP Negative (Negative); BARBITURATES Negative (Negative); BENZODIAZEPINES Negative (Negative); COCAINE Negative (Negative); METHADONE Negative (Negative); OPIATES Negative (Negative); PCP Negative (Negative)
[2018-08-23 17:14] LABS: HYALINE CASTS 0-3 Few /LPF (None Seen); SQUAMOUS None Seen /LPF (0-3)
[2018-08-23] MEDS ORDERED: CLINDAMYCIN HC300 MG PO (17:14)
[2018-08-23] MEDS ORDERED: PRILOSEC 20 MG20 MG PO (17:14)
[2018-08-23 17:15] LABS: BACTERIA-REFLEX 1-9 Few /HPF (None Seen); CRYSTALS None Seen /LPF (None Seen); URINE RBC 0-2 Rare /HPF (0-2); URINE WBC-REFLEX None Seen /HPF (0-5)
--- NOTE | 2018-08-23 17:15 | EKG ---
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: : 1970 Requested By: Elieser Guerra Order Number: [id number] MD: Silvestre Petit Measurements Intervals [place] Rate: 80 P: 31 [place]: 157 QRS: -8 QRSD: 91 T: 105 QT: 370 QTc: 427 Interpretive Statements Sinus rhythm Probable left atrial enlargement Anterior infarct, old Nonspecific T abnormalities, lateral leads Baseline wander in lead(s) V4 Compared to ECG 06/01/2018 09:58:44 No significant changes Electronically Signed On 08-23-2018 17:15:12 FISHING VESSEL MATE by Silvestre Petit [email or web address] ��������������������������������������������� <ELECTRONICALLY SIGNED> ���������������������������������������� By: Silvestre Petit MD ��������������������������������������������� 08/23/18 1715 1526 1526 Silvestre Petit MD /JAVIER
[2018-08-23 18:04] VITALS: BP 111/66
== END 2018-08-23 18:05 | disposition home or self-care (01) ==
LOC: ER 14:37
PROVIDERS: Emergency Medicine
DX: E11.621 Type 2 diabetes mellitus with foot ulcer (principal); L97.519 Non-pressure chronic ulcer of other part of right foot with unspecified severity; R10.13 Epigastric pain; R07.89 Other chest pain; R80.9 Proteinuria, unspecified; K21.9 Gastro-esophageal reflux disease without esophagitis; E11.40 Type 2 diabetes mellitus with diabetic neuropathy, unspecified; M13.88 Other specified arthritis, other site; F17.210 Nicotine dependence, cigarettes, uncomplicated; Z88.0 Allergy status to penicillin

== ENCOUNTER → 2018-09-07 | Outpatient (CLI) | payer OTHER ==
[~2018-09-07] MED LIST changes: +CLINDAMYCIN HC300 MG PO; +PRILOSEC 20 MG20 MG PO
== END ==
LOC: HYPER 09-01 09:17
DX: S90.411A Abrasion, right great toe, initial encounter (principal); S90.414A Abrasion, right lesser toe(s), initial encounter; L84 Corns and callosities; E11.43 Type 2 diabetes mellitus with diabetic autonomic (poly)neuropathy; E11.51 Type 2 diabetes mellitus with diabetic peripheral angiopathy without gangrene; K21.9 Gastro-esophageal reflux disease without esophagitis; M19.90 Unspecified osteoarthritis, unspecified site; F17.200 Nicotine dependence, unspecified, uncomplicated; Z79.4 Long term (current) use of insulin; Z86.73 Personal history of transient ischemic attack (TIA), and cerebral infarction without residual deficits; Z89.422 Acquired absence of other left toe(s); Z95.5 Presence of coronary angioplasty implant and graft; Z79.82 Long term (current) use of aspirin; X58.XXXA Exposure to other specified factors, initial encounter; Y92.89 Other specified places as the place of occurrence of the external cause; Y99.8 Other external cause status

== ENCOUNTER → 2018-09-21 | Outpatient (CLI) | payer OTHER | LOC: HYPER 06:54 | DX: S90.411D Abrasion, right great toe, subsequent encounter (principal); T23.331A Burn of third degree of multiple right fingers (nail), not including thumb, initial encounter; T31.0 Burns involving less than 10% of body surface; E11.43 Type 2 diabetes mellitus with diabetic autonomic (poly)neuropathy; E11.51 Type 2 diabetes mellitus with diabetic peripheral angiopathy without gangrene; K21.9 Gastro-esophageal reflux disease without esophagitis; F17.200 Nicotine dependence, unspecified, uncomplicated; M19.90 Unspecified osteoarthritis, unspecified site; Z86.73 Personal history of transient ischemic attack (TIA), and cerebral infarction without residual deficits; Z89.422 Acquired absence of other left toe(s); Z95.828 Presence of other vascular implants and grafts; Z79.4 Long term (current) use of insulin; X58.XXXD Exposure to other specified factors, subsequent encounter; X08.8XXA Exposure to other specified smoke, fire and flames, initial encounter; Y93.89 Activity, other specified; Y92.89 Other specified places as the place of occurrence of the external cause; Y99.8 Other external cause status ==

== ENCOUNTER → 2018-11-07 | Outpatient (CLI) | payer OTHER | LOC: HYPER 10-12 07:00 | DX: S90.421D Blister (nonthermal), right great toe, subsequent encounter (principal); X58.XXXD Exposure to other specified factors, subsequent encounter; T23.231D Burn of second degree of multiple right fingers (nail), not including thumb, subsequent encounter; T31.0 Burns involving less than 10% of body surface; E11.51 Type 2 diabetes mellitus with diabetic peripheral angiopathy without gangrene; E11.43 Type 2 diabetes mellitus with diabetic autonomic (poly)neuropathy; R60.0 Localized edema; K21.9 Gastro-esophageal reflux disease without esophagitis; M19.90 Unspecified osteoarthritis, unspecified site; F17.200 Nicotine dependence, unspecified, uncomplicated; Z86.73 Personal history of transient ischemic attack (TIA), and cerebral infarction without residual deficits; Z79.4 Long term (current) use of insulin; Z95.5 Presence of coronary angioplasty implant and graft; Z89.422 Acquired absence of other left toe(s); X08.8XXD Exposure to other specified smoke, fire and flames, subsequent encounter ==

== ENCOUNTER 2018-12-24 20:09 | Inpatient (IN) | payer OTHER ==
[~2018-12-24] VITALS: Ht 198.1 cm; Wt 142.4 kg
[2018-12-24 20:10] VITALS: BP 77/47
[2018-12-24 20:39] LABS: ABSOLUTE NEUTROPHILS 5.9 thou/uL (1.4-8.2); BASOPHILS 1.4 % (0.0-2.0); HEMOGLOBIN 12.5 gm/dL (14.0-18.0); LYMPHOCYTES 34.9 % (24.0-44.0); MCH 34.5 pg (26.0-34.0); MCHC 34.7 g/dL (28.0-37.0); MCV 99.4 fL (80.0-100.0); MONOCYTES 6.6 % (1.0-8.0); PLATELET COUNT 194 thou/uL (150-400); POLYS 54.1 % (36.0-66.0); RBC 3.62 mil/uL (4.50-6.00); RDW 14.6 % (10.5-14.5); WBC 10.9 thou/uL (4.0-11.0)
[2018-12-24 20:48] LABS: ANION GAP 12 mmol/L (7-16); BUN 59 mg/dL (7-18); CALCIUM 8.9 mg/dL (8.5-10.1); CHLORIDE 98 mmol/L (98-107); CO2 24 mmol/L (21-32); CREATININE 3.6 mg/dL (0.7-1.3); GLUCOSE 177 mg/dL (74-106); POTASSIUM 5.2 mmol/L (3.5-5.1); SODIUM 134 mmol/L (136-145)
[2018-12-24 20:58] LABS: ALBUMIN 3.5 g/dL (3.4-5.0); LARGE PLATELETS RARE; MAGNESIUM 1.9 mg/dL (1.8-2.4); SGOT 16 U/L (15-37); SGPT 19 U/L (30-65); TOTAL BILIRUBIN 0.4 mg/dL (<0.1-1.0); TOTAL PROTEIN 7.7 g/dL (6.4-8.2); TROPONIN-I <0.06 ng/mL (<0.06)
[2018-12-24 21:31] LABS: URINE BILIRUBIN NEGATIVE (Negative); URINE BLOOD TRACE (Negative); URINE CLARITY CLEAR; URINE COLOR YELLOW; URINE GLUCOSE-RANDOM* 3+ (Negative); URINE KETONES NEGATIVE (Negative); URINE LEUKOCYTES-REFLEX NEGATIVE (Negative); URINE NITRITE-REFLEX NEGATIVE (Negative); URINE PROTEIN (DIPSTICK) TRACE (Negative); URINE SPECIFIC GRAVITY 1.015 (1.005-1.035); URINE UROBILINOGEN 0.2 E.U./dl (0.2-1.0)
[2018-12-24 21:43] LABS: AMP/METHAMP Negative (Negative); BARBITURATES Negative (Negative); BENZODIAZEPINES Negative (Negative); COCAINE Negative (Negative); METHADONE Negative (Negative); OPIATES Negative (Negative); PCP Negative (Negative)
[2018-12-24 22:48] VITALS: BP 85/70
[2018-12-24 22:55] VITALS: BP 93/57
[2018-12-24 23:13] VITALS: BP 103/58
[2018-12-25] MEDS ORDERED: BACLOFEN 10MG T10 MG PO (01:47)
[2018-12-25] MEDS ORDERED: COREG25 MG PO (01:50)
[2018-12-25] MEDS ORDERED: XARELTO20 MG PO (02:03)
[2018-12-25] MEDS ORDERED: DEMADEX20 MG PO (02:04)
[2018-12-25] MEDS ORDERED: FLOMAX0.4 MG PO (02:05)
[2018-12-25] MEDS ORDERED: SPIRONOLACTONE25 M1 PO (02:08)
[2018-12-25] MEDS ORDERED: AMITRIPTYLINE H10 M3 PO (02:09)
[2018-12-25] MEDS ORDERED: ENTRESTO 49 MG1 EACH PO (02:10)
[2018-12-25 03:54] VITALS: BP 83/54
--- NOTE | 2018-12-25 03:55 | NUR ---
PT ARRIVED UNIT 2330. A/O X4. PT ACCOMPANIED BY HIS SIGNIFICANT OTHER. BP WAS LOW IN THE 80'S/50'S.IV FLUID WAS STARTED ORDERED.INSTRUCTED PATIENT TO STAY BEDREST FOR NOW DUE TO LOW BP.URINAL WAS OFFERED AND VOIDED ADEQUATELY. PATIENT ON ROOM AIR AND DENIES SOB.COMPLAIN OF CHEST PRESSURE THAT RADIATES TO HIS BACK AND HEADACHE,TYLENOL WAS GIVEN. TELE MONITOR SHOWS SINUS RHYTHM. ADMISSION HISTORY AND ASSESMENT DONE AND RECORDED.WILL CONTINUE MONITOR AND CONTINUE POC.
[2018-12-25 04:59] LABS: HEMATOCRIT 31.3 % (42.0-52.0); HEMOGLOBIN 10.8 gm/dL (14.0-18.0); MCH 34.6 pg (26.0-34.0); MCHC 34.5 g/dL (28.0-37.0); MCV 100.3 fL (80.0-100.0); RBC 3.12 mil/uL (4.50-6.00); RDW 14.6 % (10.5-14.5)
[2018-12-25 05:21] LABS: ANION GAP 9 mmol/L (7-16); BUN 56 mg/dL (7-18); CALCIUM 7.5 mg/dL (8.5-10.1); CHLORIDE 104 mmol/L (98-107); CO2 25 mmol/L (21-32); GLUCOSE 160 mg/dL (74-106); POTASSIUM 4.5 mmol/L (3.5-5.1); SODIUM 138 mmol/L (136-145); TROPONIN-I <0.06 ng/mL (<0.06)
[2018-12-25 07:09] VITALS: BP 80/45
[2018-12-25 10:05] VITALS: BP 109/73
[2018-12-25 11:18] VITALS: BP 103/69
--- NOTE | 2018-12-25 18:06 | NUR ---
ASSUMED CARE AT 0700, SHIFT ASSESSMENT DONE, MEDS GIVEN, BP LOW THIS AM. DR MELLO GAVE ORDER FOR 1L BOLUS NS AND BLADDER SCAN, BOTH CARRIED OUT. BLADDER SCAN SHOWED 100 ML, PATIENT WAS ABLE TO URINATE 750 ML AND REPEAT SHOWED 200 ML. BP WAS BETTER AT 109/73. WAS SEEN BY WOUND CARE, RIGHT TOE CULTURE SENT TO THE LAB. DENIES ANY PAIN, NAUSEA, VOMITING. UP WITH STANDBY, USING URINAL. NSR ON TELE. WILL CONTINUE TO ASSESS AND ASSIST WITH ADLs NEEDED.
[2018-12-25 19:54] VITALS: BP 112/58
[2018-12-26 04:01] LABS: ALBUMIN 3.3 g/dL (3.4-5.0); CALCIUM 8.4 mg/dL (8.5-10.1); PHOSPHORUS 3.2 mg/dL (2.5-4.9); POTASSIUM 4.8 mmol/L (3.5-5.1)
[2018-12-26 04:02] LABS: CREATININE 1.7 mg/dL (0.7-1.3)
[2018-12-26 04:05] VITALS: BP 106/65
[2018-12-26 07:18] VITALS: BP 153/72
--- NOTE | 2018-12-26 08:10 | EKG ---
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 : 1970 Requested By: Rojelio Driscoll Order Number: [id number] MD: Silvestre Petit Measurements Intervals [place] Rate: 89 P: 9 [place]: 137 QRS: 0 QRSD: 97 T: 119 QT: 330 QTc: 402 Interpretive Statements Sinus rhythm Anterior infarct, old Abnormal T, consider ischemia, lateral leads Compared to ECG 08/23/2018 15:26:15 Possible ischemia now present Myocardial infarct finding still present T-wave abnormality still present Electronically Signed On 12-26-2018 8:10:29 CDT by Silvestre Petit [email or web address] ��������������������������������������������� <ELECTRONICALLY SIGNED> ���������������������������������������� By: Silvestre Petit MD ��������������������������������������������� 12/26/18 0810 17 17 Silvestre Petit MD /EPI
--- NOTE | 2018-12-26 08:23 | EKG ---
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 : 1970 Requested By: Leann Inman Order Number: [id number] MD: Silvestre Petit Measurements Intervals [place] Rate: 68 P: 6 [place]: 164 QRS: -2 QRSD: 101 T: 109 QT: 389 QTc: 414 Interpretive Statements Sinus rhythm Anterior infarct, old Nonspecific T abnormalities, lateral leads Compared to ECG 08/23/2018 15:26:15 No significant changes Electronically Signed On 12-26-2018 8:23:15 CDT by Silvestre Petit [email or web address] ��������������������������������������������� <ELECTRONICALLY SIGNED> ���������������������������������������� By: Silvestre Petit MD ��������������������������������������������� [address] 5 5 Silvestre Petit MD /JAVIER
--- NOTE | 2018-12-26 08:31 | NUR ---
ASSESSMENTS CHARTED. PATIENT RESTING IN BED DURING SHIFT. LEFT EJ WAS DC'D AT PATIENT'S REQUEST. ACCIDENTALLY PULLED RIGHT AC IV ACCESS OUT DURING SLEEP. NEW IV IN LEFT AC. IV FLUIDS RUNNING. PATIENT DIURESING DURING SHIFT. FALL PRECAUTIONS IN PLACE.
--- NOTE | 2018-12-26 10:43 | 2DMMODE ---
[facility] [address] [place] [address] 2 D/M-MODE ECHOCARDIOGRAM Name: KATERINAGLO TONJA Room #: 212-P ADM IN M.R.#: [id number] ������������� Admission: 12/24/18 ������������� Attend Phys: Martin Josue, Discharge: ��� ������������� ��� Date of : 72 Date of Service: 12/26/18 1043 �� Report #: [id number] �������� ��������������������������������������������[id number] THIS REPORT FOR: //name// APPROVED REPORT Study performed: 12/26/2018 08:30:16 EXAM: Comprehensive 2D, Doppler, and color-flow Echocardiogram Patient Location: Echo lab Room #: [facility] Status: routine BSA: 2.75 HR: 68 bpm BP: 153/72 mmHg Rhythm: NSR Other Information Study Quality: Adequate Indications Dyspnea Chest Pain Hx: NV, ISCM, CHF, DM, COPD, PVD. 2D Dimensions RVDd: 42.50 mm IVSd: 12.00 (7-11mm) LVDd: 57.24 mm PWd: 12.00 (7-11mm) Ascending Ao: 33.50 (22-36mm) LVDs: 45.03 (25-40mm) Aortic Root: 34.61 mm Volumes Left Atrial Volume (Systole) Single Plane 4CH: 76.51 mL Single Plane 2CH: 73.58 mL LA ESV Index: 29.00 mL/m2 Aortic Valve AoV Peak Brennon.: 1.15 m/s AO Peak Gr.: 5.33 mmHg LVOT Max P.11 mmHg LVOT Max V: 1.01 m/s Mitral Valve E/A Ratio: 0.8 MV Decel. Time: 241.40 ms [facility] [address] [place] [address] 2 D/M-MODE ECHOCARDIOGRAM Name: GLO BORGES Room #: 212-P [facility] IN ..#: [id number] ������������� Admission: 12/24/18 ������������� Attend Phys: Martin Josue, Discharge: ��� ������������� ��� Date of : 72 Date of Service: 12/26/18 1043 �� Report #: [id number] �������� ��������������������������������������������[id number] MV E Max Brennon.: 0.61 m/s MV A Brennon.: 0.80 m/s MV PHT: 70.01 ms IVRT: 86.51 ms Pulmonary Valve PV Peak Brennon.: 1.10 m/s PV Peak Gr.: 4.86 mmHg Pulmonary Vein P Vein S: 0.48 m/s P Vein D: 0.40 m/s P Vein S/D Ratio: 1.20 Tricuspid Valve TR Peak Brennon.: 2.35 m/s TR Peak Gr.: 22.16 mmHg Left Ventricle Left ventricle is at the upper limits of normal. distal anteroseptal severe hypokinesis Mild concentric left ventricular hypertrophy. Left ventricular systolic function is moderately decreased. LVEF is 35%. Mild diastolic dysfunction is present (impaired relaxation pattern). Right Ventricle The right ventricle is normal size. The right ventricular systolic function is normal. Atria The left atrium size is normal. The right atrium size is normal. Aortic Valve The aortic valve is normal in structure. No aortic regurgitation is present. There is no aortic valvular stenosis. Mitral Valve The mitral valve is normal in structure. Trace mitral regurgitation. Tricuspid Valve The tricuspid valve is normal in structure. Trace tricuspid regurgitation. Estimated PAP is 22mmHg plus the right atrial pressure. Pulmonic Valve [facility] [address] [place] [address] 2 D/M-MODE ECHOCARDIOGRAM Name: GLO BORGES Room #: 212-P [facility] IN M.R.#: [id number] ������������� Admission: 12/24/18 ������������� Attend Phys: Martin Josue, Discharge: ��� ������������� ��� Date of : 72 Date of Service: 12/26/18 1043 �� Report #: [id number] �������� ��������������������������������������������[id number] The pulmonary valve is normal in structure. There is no pulmonic valvular regurgitation. Great Vessels The aortic root is normal in size. The ascending aorta is normal in size. IVC is not well visualized. Pericardium There is no pericardial effusion. <Conclusion> Left ventricle is at the upper limits of normal. LVEF is 35%. distal anteroseptal severe hypokinesis The left atrium size is normal. The aortic valve is normal in structure. The mitral valve is normal in structure. Trace mitral regurgitation. The tricuspid valve is normal in structure. Trace tricuspid regurgitation. Estimated PAP is 22mmHg plus the right atrial pressure. The pulmonary valve is normal in structure. There is no pericardial effusion. ��������������������������������������������� <ELECTRONICALLY SIGNED> ���������������������������������������� By: Mike Ramon MD ��������������������������������������������� 12/26/18 1043 1043 104 Mike Ramon MD /INF
[2018-12-26 12:00] VITALS: BP 136/89
--- NOTE | 2018-12-26 12:34 | NUR ---
PT ADMITTED RELATED TO HYPOVOLEMIA, RENAL FAILURE, SOB. CM REVIEWED CHART AND SPOKE WITH CARE TEAM. CM MET WITH PT AT BEDSIDE THIS DAY. PT IS A&O X4. CM ROLE INTRODUCED. PT INDICATED HE LIVES IN A DUPLEX WITH HIS FIANCE WITH 2 STEPS TO ENTER AND NO STEPS INSIDE. 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 PT INIDCATED HE HAS A PCP AT [facility] IN [place]. PT INDICATED HE PLANS TO RETURN HOME ONCE MEDICALLY STABLE. CM TO FOLLOW INDICATED WITH DC PLANNING.
--- NOTE | 2018-12-26 13:39 | NUR ---
WOUND CARE CONSULT; ROUNDING TODAY WITH DR MARYSE TREADWELL AND BEATRIS WREN BSN. THE RIGHT LATERAL FOOT AND TOE WOUNDS ARE STABLE WITHOUT S/S OF INFECTION AT THIS TIME. RECOMMENDATIONS; CONTINUE CURRENT DRESSSING CHANGES WITH BOARDERED FOAM. RN NOTIFIED
--- NOTE | 2018-12-26 14:38 | NUR ---
PT IS ALERT AND ORIENTED X4. ,LUNGS ARE CLEAR TO DIMINISHED. ON ROOM AIR. SINUS RHYTHM ON THE MONITOR . VOIDS PER URINAL. DENIES PAIN PHYSICAL AND OCCUPATIONAL THERAPY WORKED WITH PT TODAY. 2 PLUS EDMA NOTED IN FEET. DEMIES ANY PAIN AT THIS TIME. WILL CONTINUE TO ASSESS AND MONITOR PER NURSING
[2018-12-26 15:47] VITALS: BP 137/81
[2018-12-26] MEDS ORDERED: DOXYCYCLINE HYC50 MG PO (18:42)
[2018-12-26] MEDS ORDERED: ACETAMINOPHEN325 M1 PO (18:42)
[2018-12-26 19:21] VITALS: BP 137/81
--- NOTE | 2018-12-26 20:48 | NUR ---
Discharge instructions given to patient. SL removed. here to take pt home. No questions, pt understands to follow up with wound care/ and physicans.
--- NOTE | 2018-12-27 07:49 | HC ---
[facility] [place] [address] CONSULTATION Name: GLO BORGES Room #: 212-P [facility] IN M.R.#: [id number] Admission: 12/24/18 ������������������ Attend Phys: Martin Josue MD Discharge: 12/26/18 ������������������ Date of : 72 Report #: [id number] THIS REPORT FOR: //name// CC: JULIANO physician/PCP Martin Josue REASON FOR CONSULTATION: Acute kidney injury. REASON FOR PRESENTATION: Not feeling well, dizziness and lightheadedness. HISTORY OF PRESENT ILLNESS: A 48-year-old with long-standing diabetes mellitus with all complications related to that, including diabetic foot infection and neuropathy. He has normalized his kidney function back in 05/2018 after an acute kidney injury event and was discharged with a creatinine of 1.2. He is also known to have heart failure with severe coronary artery disease. He presented with weakness, dizziness, lightheadedness. He also reported to near syncope. He was on the extreme hypotension when he presented. The patient is currently maintained on Entresto by his training designer. He is also on carvedilol. He denies nonsteroidal anti-inflammatory medications. He sees wound care for some ongoing wound issues. He denies any urinary symptoms. No fever or chills. I am being consulted to manage his acute kidney injury. MEDICATIONS: 1. Potassium. 2. Baclofen. 3. Xarelto. 4. Torsemide. 5. Spironolactone. 6. Entresto. 7. Carvedilol. PAST MEDICAL HISTORY: 1. Diabetes mellitus with all of its complications. 2. Low back surgery. 3. Heart failure with an ejection fraction of around 30%. 4. CVA. 5. Left foot transmetatarsal amputation. 6. Severe cardiomyopathy. 7. DVT. 8. Pancreatitis. 9. Peripheral vascular disease. ALLERGIES: PENICILLIN. FAMILY HISTORY: Diabetes mellitus. SOCIAL HISTORY: No drug or alcohol abuse. [facility] [address] [place] [address] CONSULTATION Name: GLO BORGES Room #: 212-P [facility] IN ..#: [id number] Admission: 12/24/18 ������������������ Attend Phys: Martin Josue MD Discharge: 12/26/18 ������������������ Date of : 72 Report #: [id number] REVIEW OF SYSTEMS: GENERAL: Significant for weakness. No fever or chills. CARDIOVASCULAR: Significant for shortness of breath. PULMONARY: Significant for cough. GASTROINTESTINAL: No nausea or vomiting. GENITOURINARY: No frequency, no urgency. MUSCULOSKELETAL: Occasional back pain. SKIN: As per the history of present illness. NEUROLOGICAL: Weakness and dizziness, and near syncope. PHYSICAL EXAMINATION: GENERAL: The patient is alert, oriented. VITAL SIGNS: Temperature is 36.6, blood pressure is actually 80/45 and he had low blood pressure readings as low as 77/47. HEAD AND NECK: No jugular venous distention. CHEST: Decreased air entry bilaterally. CARDIOVASCULAR: Regular with no rub detected. ABDOMEN: Soft, nontender. LOWER EXTREMITIES: Trace edema with amputation on the left side as described above. LABORATORY DATA: Reviewed. Hemoglobin is 10.8. Sodium is 138, up from 134 yesterday. Potassium is down to 4.5 from 5.2 yesterday. BUN is down to 56 from 59 and creatinine is down to 3.0 from 3.6. C-reactive protein is elevated at 15.1. Troponin is negative. ASSESSMENT, IMPRESSION AND PLAN: 1. Acute kidney injury due to hypotension. 2. Severe cardiomyopathy. 3. Diabetes mellitus with extensive complications. 4. Peripheral vascular disease. 5. The patient's acute kidney injury is related to hypotension, probably induced by Entresto. Discontinue the offending agent. 6. Bolus with IV fluid. 7. Bladder scan. 8. Defer the management of his cardiac issues to the cardiac team. 9. Monitor urine output. 10. Avoid nephrotoxins. 11. We will continue to follow along. ��������������������������������������������� <ELECTRONICALLY SIGNED> ���������������������������������������� By: Nora Kramer MD ��������������������������������������������� 12/27/18 0749 0834 0859 Nora Kramer MD /nt
--- NOTE | 2018-12-27 12:30 | HC ---
[facility] [place] [address] CONSULTATION Name: GLO BORGES Room #: 212-P [facility] IN M.R.#: [id number] Admission: 12/24/18 ������������������ Attend Phys: Martin Josue MD Discharge: 12/26/18 ������������������ Date of : 72 Report #: [id number] THIS REPORT FOR: //name// CC: JULIANO physician/PCP Martin Josue DATE OF SERVICE: 12/25/2018 WOUND CARE CONSULTATION NOTE REASON FOR CONSULTATION: Diabetic foot ulcer of right foot. HISTORY OF PRESENT ILLNESS: The patient is a 48-year-old gentleman, a patient of Dr. Daren Timmons with a history of obesity, diabetic neuropathy and diabetes mellitus type 2. He is status post cerebrovascular accident and deep vein thrombosis. The patient has seen Dr. Timmons in the past for diabetic foot ulcers. The patient was admitted at this time for dehydration, acute kidney injury and chest pain. Troponin was negative. He has ruled out for myocardial infarction and he has been rehydrated. He no longer has chest pain. The patient has noted for several weeks a wound of his right great toe with dry eschar on the surface. He has a new wound at the base of the right great toe. Right great toe has been somewhat swollen enlarged. He had not brought this to the attention of Dr. Timmons or other physicians, but this was noticed at the time of his admission. He does have diabetic neuropathy. He has noted nonhealing wound to the right great toe for several weeks now. PAST MEDICAL HISTORY: Diabetes mellitus type 2 with diabetic neuropathy, history of foot infections in the past, history of left forefoot amputation and history of pancreatitis, history of cerebrovascular accident, history of DVT, history of chronic back pain and history of hypertension. MEDICATIONS: Include Prilosec, Bentyl, Lyrica, Lantus insulin, Humalog insulin, potassium, Imdur, Coreg, Xarelto, Flomax, Elavil, aspirin, Lipitor and Nitrostat. ALLERGIES: PENICILLINS. PAST SURGICAL HISTORY: Left forefoot amputation x 5 due to gangrene, stents to the left leg and back surgery for herniated disk. PHYSICAL EXAMINATION: GENERAL: Shows chronically ill-appearing obese, middle-aged male. HEENT: Mucous membranes are moist. LUNGS: Respirations are unlabored. HEART: Shows regular rate and rhythm. ABDOMEN: Obese. [facility] [address] [place] [address] CONSULTATION Name: GLO BORGES Room #: 212-P [facility] IN M.R.#: [id number] Admission: 12/24/18 ������������������ Attend Phys: Martin Josue MD Discharge: 12/26/18 ������������������ Date of : 72 Report #: [id number] EXTREMITIES: Shows healed forefoot amputation, left foot. Examination of the right foot shows some edema and redness of the right great toe, which is swollen compared to the other toes with slight redness to the base of the toe at the metatarsophalangeal joint. This appeared more inflammatory than cellulitic. There is a 1 x 1 cm dry scabbed over open wound of the right medial great toe proximal interphalangeal joint with no drainage. At the base of the right great toe, there is a 1 x 1 cm superficial open wound. X-ray of the right foot shows no bony changes. IMPRESSION: 1. Obesity. 2. Diabetes mellitus type 2 with diabetic neuropathy. 3. Status post cerebrovascular accident. 4. Status post deep vein thrombosis. 5. Peripheral vascular disease with Vascular Surgery on the left leg. 6. Status post previous left forefoot amputation for peripheral vascular disease and gangrene. 7. Diabetic foot ulcer of the right great toe without bony involvement and mild cellulitis. PLAN: Place the patient on doxycycline 100 mg p.o. b.i.d. for a 2-week course. He will be seen in the clinic at [facility], Dr. Timmons, as soon as possible. He will cover the wound with a Mepilex bandage and use Silvadene at home as he has been doing. Follow up at [facility]. Discharge on p.o. doxycycline. ��������������������������������������������� <ELECTRONICALLY SIGNED> ���������������������������������������� By: Leeroy López MD ��������������������������������������������� 12/27/18 1230 1228 3913 Leeroy López MD /nt
== END 2018-12-26 19:45 | disposition home or self-care (01) | DRG 682 ==
LOC: ER 20:09 → EROBS 22:36 → 2N 23:24
PROVIDERS: Emergency Medicine; Hospitalist; Nurse Practitioner; ADMIT Internal Medicine
DX: N17.9 Acute kidney failure, unspecified (principal); G92 Toxic encephalopathy; I42.9 Cardiomyopathy, unspecified; L03.115 Cellulitis of right lower limb; I50.22 Chronic systolic (congestive) heart failure; E44.1 Mild protein-calorie malnutrition; I13.0 Hypertensive heart and chronic kidney disease with heart failure and stage 1 through stage 4 chronic kidney disease, or unspecified chronic kidney disease; K59.09 Other constipation; K21.9 Gastro-esophageal reflux disease without esophagitis; E11.40 Type 2 diabetes mellitus with diabetic neuropathy, unspecified; F17.210 Nicotine dependence, cigarettes, uncomplicated; E86.1 Hypovolemia; I25.10 Atherosclerotic heart disease of native coronary artery without angina pectoris; E11.51 Type 2 diabetes mellitus with diabetic peripheral angiopathy without gangrene; E66.9 Obesity, unspecified; E11.621 Type 2 diabetes mellitus with foot ulcer; E11.65 Type 2 diabetes mellitus with hyperglycemia; L97.519 Non-pressure chronic ulcer of other part of right foot with unspecified severity; R07.89 Other chest pain; N18.9 Chronic kidney disease, unspecified; J44.9 Chronic obstructive pulmonary disease, unspecified; I25.5 Ischemic cardiomyopathy; Z89.432 Acquired absence of left foot; Z95.820 Peripheral vascular angioplasty status with implants and grafts; Z86.73 Personal history of transient ischemic attack (TIA), and cerebral infarction without residual deficits; Z79.899 Other long term (current) drug therapy; Z86.718 Personal history of other venous thrombosis and embolism; Z79.01 Long term (current) use of anticoagulants; Z68.36 Body mass index [BMI] 36.0-36.9, adult; I25.2 Old myocardial infarction; Z88.0 Allergy status to penicillin
CPT/HCPCS: 10081

== ENCOUNTER → 2019-01-16 | Outpatient (CLI) | payer OTHER ==
[~2019-01-16] MED LIST changes: +ACETAMINOPHEN325 M1 PO; +AMITRIPTYLINE H10 M3 PO; +BACLOFEN 10MG T10 MG PO; +COREG25 MG PO; +DOXYCYCLINE HYC50 MG PO; +ENTRESTO 49 MG1 EACH PO; +LISINOPRIL2.5 MG PO; +SPIRONOLACTONE25 M1 PO
== END ==
LOC: HYPER 06:24
DX: E11.621 Type 2 diabetes mellitus with foot ulcer (principal); L97.512 Non-pressure chronic ulcer of other part of right foot with fat layer exposed; T23.261D Burn of second degree of back of right hand, subsequent encounter; E11.43 Type 2 diabetes mellitus with diabetic autonomic (poly)neuropathy; E11.51 Type 2 diabetes mellitus with diabetic peripheral angiopathy without gangrene; L84 Corns and callosities; K21.9 Gastro-esophageal reflux disease without esophagitis; M19.90 Unspecified osteoarthritis, unspecified site; R60.0 Localized edema; F17.200 Nicotine dependence, unspecified, uncomplicated; Z86.73 Personal history of transient ischemic attack (TIA), and cerebral infarction without residual deficits; Z89.422 Acquired absence of other left toe(s); Z79.4 Long term (current) use of insulin; X08.8XXD Exposure to other specified smoke, fire and flames, subsequent encounter

== ENCOUNTER → 2019-01-26 | Outpatient (CLI) | payer OTHER ==
[~2019-01-26] MED LIST changes: -LISINOPRIL2.5 MG PO
== END ==
LOC: HYPER 06:51
DX: E11.621 Type 2 diabetes mellitus with foot ulcer (principal); L97.512 Non-pressure chronic ulcer of other part of right foot with fat layer exposed; E11.43 Type 2 diabetes mellitus with diabetic autonomic (poly)neuropathy; E11.51 Type 2 diabetes mellitus with diabetic peripheral angiopathy without gangrene; L84 Corns and callosities; K21.9 Gastro-esophageal reflux disease without esophagitis; M62.838 Other muscle spasm; M19.90 Unspecified osteoarthritis, unspecified site; R60.0 Localized edema; F17.200 Nicotine dependence, unspecified, uncomplicated; Z89.422 Acquired absence of other left toe(s); Z86.73 Personal history of transient ischemic attack (TIA), and cerebral infarction without residual deficits; Z79.4 Long term (current) use of insulin

== ENCOUNTER 2019-02-10 15:39 | Inpatient (IN) | payer OTHER ==
[2019-02-10] VITALS (10 sets, daily range): BP systolic 83–105; BP diastolic 34–70
[~2019-02-10] VITALS: Ht 198.1 cm; Wt 150.1 kg
--- NOTE | ~2019-02-10 | HC ---
[facility] [place] [address] CONSULTATION Name: GLO BORGES Room #: 427-P [facility] IN M.R.#: [id number] Admission: 02/10/19 Attend Phys: Vikash Avila MD Discharge: Date of : 72 Report #: [id number] THIS REPORT FOR: //name// CC: JULIANO physician/PCP Vikash Avila DATE OF SERVICE: 02/11/2019 REASON FOR CONSULTATION: Right foot wound. HISTORY OF PRESENT ILLNESS: The patient is a 48-year-old male. He reports noting a blister on his right foot approximately 3 weeks ago. He was seen at the [facility] and reported that the wound has become worse despite treatment. He reports no foul odor and black coloration to the foot. He reports a history of neuropathy and has no reports absent sensation to the right foot. REVIEW OF SYSTEMS: MUSCULOSKELETAL: See HPI, in addition to this, the patient had a left forefoot amputation done remotely for necrosis. NEUROLOGIC: The patient gives a history of diabetic neuropathy and absent sensation to the feet. PAST MEDICAL HISTORY: Significant for acute renal failure, hypertension, coronary artery disease, history of DVTs, history of pancreatitis, diabetes, diabetic neuropathy. PAST SURGICAL HISTORY: Left foot partial amputation, back surgery. ALLERGIES: PENICILLIN. SOCIAL HISTORY: He is on disability, does not typically use any ambulatory aids. Does smoke about a pack of cigarettes a day. Denies drinking alcohol. He is and lives with his spouse. LABORATORY DATA: Laboratory studies show white blood cell count 6.9, hemoglobin 10.2, hematocrit 29.6 and platelet count 229. ESR done on 02/10/2019 is 70. INR is 1.1. Chemistry shows normal electrolytes, creatinine is elevated at 2. Calcium is low at 8.2. PHYSICAL EXAMINATION: GENERAL: The patient is awake, alert and oriented, interacts appropriately. He is a well-developed, well-nourished male in no acute distress. He converses well. Heart rate is 59, respiratory rate 10: Blood pressure 102/61, pulse oximetry 97% on room air. EXTREMITIES: Examination of his right lower extremity shows a 5 cm x 5 cm [facility] [address] [place] [address] CONSULTATION Name: KATERINAGLO EVANGELISTA Room #: 427-P ADM IN M.R.#: [id number] Admission: 02/10/19 Attend Phys: Vikash Avila MD Discharge: Date of : 72 Report #: [id number] somewhat oval area of necrosis at the lateral aspect of the mid foot region. There is a small rim of erythema. He has absent sensation. I am unable to palpate posterior tibial and anterior pulse. He wiggles his toes well. There is a foul odor. RADIOGRAPHS: Three views of the right foot do not show any definite osteolysis and an MRI is pending. IMPRESSION AND PLAN: Right foot necrosis. We will await the MRI. If necessary I can perform a surgical debridement or one of my partners. We will await the MRI as well as the wound care recommendations. Questions were encouraged as best of my ability. By: 1047 1845 Aziza Allen MD /nt
--- NOTE | ~2019-02-10 | O ---
[facility] [place] [address] OPERATIVE REPORT Name: GLO BORGES Room #: 427-P [facility] IN M.R.#: [id number] Admission: 02/10/19 Attend Phys: Vikash Avila MD Discharge: Date of : 72 Report #: [id number] THIS REPORT FOR: //name// CC: [facility] physician/PCP Vikash Avila DATE OF SERVICE: 02/12/2019 PREOPERATIVE DIAGNOSIS: Right necrotic foot wound. POSTOPERATIVE DIAGNOSIS: Right necrotic foot wound. PROCEDURE PERFORMED: Debridement of right skin, subcutaneous tissue and muscle foot approximately 5 cm wound. SURGEON: Aziza Allen MD ANESTHESIA: General mask anesthesia. ESTIMATED BLOOD LOSS: 1 mL. TOURNIQUET TIME: 11 minutes. SPECIMEN: Sent to microbiology and pathology. COMPLICATIONS: None. CONDITION: Stable. DISPOSITION: Recovery room. INDICATIONS: The patient is a 48-year-old male with the above-mentioned diagnosis. He elects for operative treatment. The risks, benefits, alternatives and complications were discussed including but not limited to infection, damage to vessels or nerves, incomplete relief of the infection, or wound healing problems. We discussed this is a moderate risk. Informed consent was obtained. The correct extremity was identified and labeled by myself after verbal confirmation of the patient as well as visual confirmation and signed informed consent. DESCRIPTION OF PROCEDURE: The patient was brought back to the operating room and placed on the operative room table in the supine position. Tourniquet was placed over padding. The patient's right leg was sterilely prepped and draped in the usual fashion. Final timeout was taken to verify correct patient, operative procedure, operative site, all concurred. The leg was elevated, but was not exsanguinated and the tourniquet inflated. Next, a 5 cm eschar was [facility] [address] [place] [address] OPERATIVE REPORT Name: KATERINAGLO TONJA Room #: 427-P [facility] IN M.R.#: [id number] Admission: 02/10/19 Attend Phys: Vikash Avila MD Discharge: Date of : 72 Report #: [id number] removed. The skin, subcutaneous tissue and muscle that was necrotic was debrided. It was debrided all the way down to the periosteum. The periosteum looked to be in good condition and a curette was used to evaluate for any cortical destruction. No cortical destruction was found. The area was then thoroughly irrigated with antibiotic saline and then dressed with dilute betadine soaked gauze, ABD and Kerlix gauze. All toes were pink with brisk capillary refill at the conclusion of the case after deflation of tourniquet. All sponge and needle counts were correct. The patient was transferred to postoperative recovery room in stable condition. By: 0923 [id number] Aziza Allen MD /nt
[2019-02-10 17:22] LABS: CALCIUM 8.4 mg/dL (8.5-10.1); CREATININE 2.6 mg/dL (0.7-1.3); POTASSIUM 4.8 mmol/L (3.5-5.1)
[2019-02-10 17:23] LABS: APTT 33.7 Seconds (24.5-32.8); BASOPHILS 1.2 % (0.0-2.0); EOSINOPHILS 4.3 % (0.0-3.0); HEMATOCRIT 31.1 % (42.0-52.0); HEMOGLOBIN 10.7 gm/dL (14.0-18.0); INR 1.1; MCH 34.3 pg (26.0-34.0); MCHC 34.3 g/dL (28.0-37.0); MONOCYTES 7.6 % (1.0-8.0); PLATELET COUNT 251 thou/uL (150-400); POLYS 60.9 % (36.0-66.0); PROTIME 11.4 Seconds (9.3-11.4); RBC 3.11 mil/uL (4.50-6.00); WBC 8.3 thou/uL (4.0-11.0)
[2019-02-10 17:28] LABS: ALBUMIN 2.9 g/dL (3.4-5.0); TOTAL BILIRUBIN 0.4 mg/dL (<0.1-1.0)
[2019-02-10] MEDS ORDERED: LISINOPRIL2.5 MG PO (19:27)
--- NOTE | 2019-02-10 21:22 | NUR ---
HAND OFF TOOL PRINTED TO ICU
--- NOTE | 2019-02-10 21:35 | NUR ---
GAVE REPORT TO NADEGE WREN IN CCU
[2019-02-11] VITALS (39 sets, daily range): BP systolic 70–129; BP diastolic 40–85
--- NOTE | 2019-02-11 05:30 | NUR ---
ASSUMED CARE OF PT. AT 2230 FROM ED. PT. IS ALERT AND ORIENTED X4. PLEASANT AND CALM, DENIES PAIN, NO N/V. SR TO SB ON MONITOR. HYPOTENSIVE ON MONITOR MAPS STILL IN THE 60S AND 70S. NO BM. TOLERATING CARB CONTROL DIET. PICTURE OF RIGHT FOOT WOUND IN CHART. CONSULTS CALLED. PT. HAS SLEPT FOR MOST OF NIGHT. POC WILL BE DETERMINED WHEN CONSULTS COME TO SEE PT. ASSESSMENTS AND VITALS CHARTED. WILL CONTINUE TO MONITOR.
[2019-02-11 05:45] LABS: HEMATOCRIT 29.6 % (42.0-52.0); HEMOGLOBIN 10.2 gm/dL (14.0-18.0); MCH 34.5 pg (26.0-34.0); MCHC 34.5 g/dL (28.0-37.0); RBC 2.96 mil/uL (4.50-6.00); RDW 13.8 % (10.5-14.5); WBC 6.9 thou/uL (4.0-11.0)
[2019-02-11 06:04] LABS: CALCIUM 8.2 mg/dL (8.5-10.1); POTASSIUM 4.6 mmol/L (3.5-5.1)
--- NOTE | 2019-02-11 17:15 | NUR ---
END OF SHIFT NOTE. PT MOVING TO ROOM 427 PERCOCET GIVEN FOR THROBBING LOUISE. VSS. PLAN SURGURY IN AM. NPO PAST MIDNIGNT.
--- NOTE | 2019-02-11 18:05 | NUR ---
PT RECEIVED TO RM 427 AT 1745 PER W/C. PT DINNER SENT FROM THE KITCHEN AND HE IS EATING. IV FLUIDS INFUSING. WILL DOSE W/ POST MEAL INSULIN. PLAN I&D ON FOOT IN AM.
[2019-02-12] VITALS (7 sets, daily range): BP systolic 97–119; BP diastolic 55–74
[2019-02-12 02:10] LABS: GLYCOHEMOGLOBIN (HGB A1C) 8.4 % (4.8-5.6)
--- NOTE | 2019-02-12 03:39 | NUR ---
PT LYING IN BED. VOIDING PER URINAL. DENIES PAIN. RESTING COMFORTABLY. NO NEEDS VOICED. CALL LIGHT WITHIN REACH. WILL CONTINUE TO PROVIDE FREQUENT OBSERVATION.
[2019-02-12 05:19] LABS: HEMATOCRIT 28.7 % (42.0-52.0); HEMOGLOBIN 9.8 gm/dL (14.0-18.0); MCH 34.5 pg (26.0-34.0); MCHC 34.3 g/dL (28.0-37.0); MCV 100.4 fL (80.0-100.0); RBC 2.86 mil/uL (4.50-6.00); RDW 13.7 % (10.5-14.5); WBC 10.9 thou/uL (4.0-11.0)
[2019-02-12 05:33] LABS: ALBUMIN 2.7 g/dL (3.4-5.0); CALCIUM 8.5 mg/dL (8.5-10.1); CREATININE 1.4 mg/dL (0.7-1.3); POTASSIUM 4.5 mmol/L (3.5-5.1); TOTAL BILIRUBIN 0.3 mg/dL (<0.1-1.0); TOTAL PROTEIN 6.9 g/dL (6.4-8.2)
--- NOTE | 2019-02-12 09:56 | HC ---
[facility] [place] [address] CONSULTATION Name: GLO BORGES Room #: 427-P [facility] IN M.R.#: [id number] Admission: 02/10/19 Attend Phys: Vikash Avila MD Discharge: Date of : 72 Report #: [id number] THIS REPORT FOR: //name// CC: [facility] physician/PCP Vikash Avila DATE OF SERVICE: 02/11/2019 ENDOCRINE CONSULTATION CONSULTING PHYSICIAN: Dr. Vikash Avila. REASON FOR CONSULTATION: Uncontrolled type 2 diabetes mellitus. HISTORY OF PRESENT ILLNESS: This is a 48-year-old male patient whose medical background is noted for type 2 diabetes mellitus, complicated by peripheral neuropathy as well as chronic kidney disease and peripheral vascular disease. The patient is status post left metatarsal amputation. Also, the patient notes issues with congestive heart failure, CVA, and DVT in the past. The patient was admitted yesterday with issues pertaining to diabetic foot with foot wound infection, sepsis and hypotension and was admitted to the ICU for further care and monitoring. The patient notes that his most recent antidiabetic regimen consisted of Lantus insulin 70 units twice a day in addition to Humalog insulin taken at 14 units before meals. Blood glucose control had been in the range of 100-180 mg/dL lately. Hypoglycemia is rare occurrence. Again, the patient's diabetic course had been complicated by neuropathy, peripheral vascular disease, macrovascular disease including CVA and congestive heart failure. REVIEW OF SYSTEMS: CONSTITUTIONAL: Fatigue, tiredness, but no fever or chills. PULMONARY: Occasional shortness of breath and cough without hemoptysis. CARDIAC: Negative for chest pain, but noted for dyspnea on exertion and orthopnea as well as leg edema. GASTROINTESTINAL: Abdominal discomfort, occasional nausea, no vomiting. SKIN: Rash and right foot ulceration and infection that the patient described as gangrenous. NEUROLOGICAL: The patient denies dizziness, headaches, seizures, or loss of consciousness, but does report symptoms or features of peripheral neuropathy. GENITOURINARY: He denies nocturia, hematuria or polyuria. PSYCHIATRIC: No issues with agitation, anxiety or depression. Otherwise, review of systems noncontributory other than those mentioned in HPI. PAST MEDICAL HISTORY: [facility] [address] [place] [address] CONSULTATION Name: GLO BORGES Room #: 427-P [facility] IN .R.#: [id number] Admission: 02/10/19 Attend Phys: Vikash Avila MD Discharge: Date of : 72 Report #: [id number] 1. Type 2 diabetes mellitus. 2. Chronic kidney disease. 3. Congestive heart failure. 4. Cellulitis. 5. Peripheral vascular disease, status post left mid metatarsal amputation. 6. Coronary artery disease. 7. Cerebrovascular accident. 8. Proteinuria. 9. Hyperlipidemia. 10. Obesity. 11. Carpal tunnel syndrome. 12. Osteoarthritis. 13. Pancreatitis. OUTPATIENT MEDICATIONS: Include Lyrica 300 mg b.i.d., Lantus insulin 70 units twice a day, Humalog 14 units a.c., isosorbide mononitrate, Imdur 30 mg daily, baclofen 10 mg b.i.d., Coreg 25 mg b.i.d., Xarelto 20 mg daily, Demadex 20 mg daily, Flomax 0.4 mg daily, spironolactone 25 mg daily, amitriptyline 10 mg daily, Entresto 49/51 mg daily, aspirin 81 mg daily, atorvastatin 40 mg daily, nitroglycerin sublingual as needed. ALLERGIES: PENICILLIN. FAMILY HISTORY: Noncontributory. SOCIAL HISTORY: The patient is engaged. He smokes a pack of cigarettes per day. Does not drink alcohol and denies use of illicit drugs. PHYSICAL EXAMINATION: GENERAL: Please, middle-aged male patient who is not in apparent distress. VITAL SIGNS: Blood pressure is 102/61 mmHg, heart rate is 59 beats per minute, respirations 10 per minute, temperature he is afebrile. HEENT: Anicteric sclerae. Intact extraocular motions. NECK: Supple, without JVD, carotid bruits or lymphadenopathy. I do not appreciate thyromegaly. CHEST: Clear to auscultation with scattered rales and rhonchi, but no wheezes. CARDIOVASCULAR: Regular rate and rhythm without murmurs or gallops. ABDOMEN: Soft and lax without tenderness or organomegaly. Has active bowel sounds. EXTREMITIES: Lower extremity exam is noted for status post left mid metatarsal resection. His right foot is in surgical dressing. NEUROLOGIC: Awake, alert and oriented to time, place and person. The remainder of the examination is noted for mild sensory deficit over both upper extremities and lower extremities. PSYCHIATRIC: Awake, alert and oriented x 3, pleasant, interactive, answers [address] [address] CONSULTATION Name: KATERINAGLO EVANGELISTA Room #: 427-P [facility] IN M.R.#: [id number] Admission: 02/10/19 Attend Phys: Vikash Avila MD Discharge: Date of : 72 Report #: [id number] appropriately. Normal mood and affect. SKIN: No apparent rash or ulceration, but the patient notes that these were noted under where his right foot surgical dressing covers now. LABORATORY DATA: White blood count 6.9, hemoglobin 10.2, hematocrit 29.6, platelets 229. INR 1.1. Sodium 137, potassium 4.6, chloride 104, carbon dioxide 21, anion gap 12, BUN 43, creatinine 2.0, GFR 36, glucose 111 and it had ranged from 111-159, calcium 8.2. Previous A1c done in 10/2018 was at 9.5. ASSESSMENT AND PLAN: 1. Type 2 diabetes mellitus. The patient reports a satisfactory level of control over the past few weeks and this is also reproduced here during his hospital stay so far with his blood glucose values running in the desired range of 140-180 mg/dL. Nonetheless, one can tell that his current basal bolus regimen is greatly biased in favor of taking large quantities of basal insulin, namely Lantus insulin 70 units twice a day versus much smaller total daily dose of Humalog at 14 units 3 times a day. That said, the patient stands to benefit from slightly shifting in the opposite direction by bringing his Lantus to 60 units twice a day and Humalog up to 20 units before meals while we monitor his blood glucose values closely. It is worth noting that the patient's overall and historic diabetic control status has been poor as reflected by his previous and current issues with microvascular and macrovascular complications. This was discussed at length with the patient and he understands the need to better control his blood glucose values going forward. Unfortunately, given the advanced kidney disease as the patient has namely stage IIIB chronic kidney disease, his oral therapeutic options for diabetes are quite limited. Should this improve in the future, he would be a good candidate for SGLT2 inhibitors given his background of congestive heart failure. Also, given the occurrence of pancreatitis, the patient is not a candidate for DPP-4 inhibitors or GLP-1 analogues now or in the future. 2. Hypocalcemia, this is mild and asymptomatic. I will seek to identify this better by obtaining an ionized calcium and vitamin D level. Further action would be done as indicated by these results. 3. Hyperlipidemia. Given the patient's extensive vascular disease and existing diabetic state, tight lipid control should be targeted. I will move to obtaining a current lipid panel to assess his current state and go from there. I certainly appreciate this consultation by Dr. Avila. <ELECTRONICALLY SIGNED> By: Jessica Moncada MD 02/12/19 0956 1410 0445 Jessica Moncada MD /nt
--- NOTE | 2019-02-12 11:34 | HC ---
[facility] [place] [address] CONSULTATION Name: GLO BORGES Room #: 427-P [facility] IN M.R.#: [id number] Admission: 02/10/19 Attend Phys: Vikash Avila MD Discharge: Date of : 72 Report #: [id number] THIS REPORT FOR: //name// CC: FAM physician/PCP Vikash Avila DATE OF SERVICE: 02/11/2019 ATTENDING PHYSICIAN: Vikash Avila M.D. REASON FOR CONSULTATION: Right diabetic foot infection. HISTORY OF PRESENT ILLNESS: A 48-year-old white man with diabetes mellitus is admitted with infected right foot necrotic area and no dorsalis pedis pulse palpable. PAST MEDICAL HISTORY: Diabetes mellitus for many years. Chronic kidney disease. Peripheral neuropathy. Transmetatarsal amputation, left foot. Electrolyte imbalance. Proteinuria. SOCIAL HISTORY: See H and P. DRUG ALLERGIES: PENICILLIN THAT CAUSES SWELLING. MEDICATIONS: The patient is currently on treatment with Rocephin 1 gram IV daily, vancomycin 750 mg IV every 12 hours, receiving also treatment with tamsulosin, insulin glargine, atorvastatin, subcutaneous heparin, insulin lispro per sliding scale, amitriptyline, insulin lispro 14 units in the morning, p.r.n. glucose, glucagon, polyethylene glycol, p.r.n. ondansetron. REVIEW OF SYSTEMS: Left foot infection for a week that has progressed from being a blister to necrotic area over the lateral aspect of right foot. PHYSICAL EXAMINATION: GENERAL: Overweight man, not toxic looking. VITAL SIGNS: Temperature 97.5. He was a bit hypotensive 87/58 earlier today. Blood pressure now 112/51, pulse 59, respirations 10. HEENMT: Pupils reactive. Conjunctivae normal. Mouth edentulous. NECK: Supple, no thyromegaly. LUNGS: Clear to auscultation. HEART: S1, S2. No gallop or murmur. ABDOMEN: Obese, soft, no masses or megaly. GENITALIA AND RECTAL: Deferred. EXTREMITIES: Revealed remote transmetatarsal amputation, left foot as well as right foot ischemic area on the lateral aspect of the right mid foot. I detected no dorsalis pedis pulses. [facility] [address] [place] [address] CONSULTATION Name: GLO BORGES Room #: 427-P [facility] IN [facility].#: [id number] Admission: 02/10/19 Attend Phys: Vikash Avila MD Discharge: Date of : 72 Report #: [id number] LABORATORY DATA: Revealed the following abnormals: BUN 43, creatinine 2.1, glucose 138, calcium 8.2, albumin 2.9 g/dL. C-reactive protein 92.2 mg/L. WBC 6.9, hemoglobin 10.2, platelets 229,000. Sedimentation rate 70 mm per hour. Foot wound culture obtained as well as the routine blood cultures that every patient gets here if febrile or not. All these cultures are pending. On 11/2018, the patient had Stenotrophomonas maltophilia on the right foot, sensitive to Levaquin, Bactrim and chloramphenicol resistant to ceftazidime. RADIOLOGY EVALUATION: MRI right foot is pending. X-ray of the right foot revealed no evidence of soft tissue wound on the lateral aspect of the right fifth metatarsal bone. No fracture, dislocation or destruction of the bony structures. Chest x-ray obtained on November of this year revealed prominent heart, normal pulmonary vascularity. Lungs clear. Echocardiogram on 12/17/2018 revealed ejection fraction of 32%, anteroseptal hypokinesis, trace mitral regurgitation. ASSESSMENT: 1. Right diabetic foot infection with ischemic changes. 2. Possible peripheral vascular disease. 3. Remote history of transmetatarsal amputation, left foot. 4. Diabetes mellitus with evidence of peripheral neuropathy and nephropathy. 5. History of lumbar laminectomy. SUGGESTIONS: Recommend proceed with MRI. Continue vancomycin. Change Rocephin to meropenem, which has better anaerobic spectrum coverage. MRSA screen. Dr. Avila, thank you for requesting my suggestions. <ELECTRONICALLY SIGNED> By: Ish Petit MD 02/12/19 1134 1119 [id number] Ihs Petit MD /nt
--- NOTE | 2019-02-12 14:28 | NUR ---
Assumed care of pt at 0700. Pt alert and oriented x4. Underwent I&D of right foot this am. Pain controlled. IVF and IV antibiotics infusing. Family at bedside. Will continue to monitor and assist with needs. Call light within reach.
--- NOTE | 2019-02-12 15:19 | HC ---
[facility] [address]ie [address] [address] CONSULTATION Name: GLO BORGES Room #: 427-P [facility] IN M.R.#: [id number] Admission: 02/10/19 Attend Phys: Vikash Avila MD Discharge: Date of : 72 Report #: [id number] THIS REPORT FOR: //name// CC: FAM physician/PCP Vikash Avila DATE OF SERVICE: 02/11/2019 WOUND CARE CONSULTATION NOTE REASON FOR CONSULTATION: Diabetic ulcer of right foot. HISTORY OF PRESENT ILLNESS: The patient is a 48-year-old gentleman with diabetes mellitus type 2 with a history of peripheral neuropathy and history of left forefoot amputation, who was admitted to the ICU yesterday with a wound of his right foot. The patient had noted the wound to the right foot for many days, but this became worse, turned black in color with foul smell. The patient was admitted to the ICU and was seen by Dr. Aziza Allen who has ordered an MRI of the right foot, which showed soft tissue infection with no obvious osteomyelitis or bony destruction. The patient is on IV antibiotics. Dr. Allen plans to take him to surgery tomorrow for foot debridement. PAST MEDICAL HISTORY: Diabetes mellitus type 2, diabetes with peripheral neuropathy, history of cerebrovascular accident, history of deep vein thrombosis, on anticoagulants, on Xarelto. Obesity, history of peripheral arterial disease, history of non-ST elevated myocardial infarction. ALLERGIES: PENICILLIN. LABORATORY DATA: White blood count 8.3. Creatinine 2.6. MEDICATIONS: Include Prilosec, Bentyl, doxycycline, acetaminophen, Lantus insulin, Lyrica, Humalog insulin, potassium, Coreg, Xarelto, Demadex, Flomax, Aldactone, Elavil, Entresto, aspirin and Lipitor. PAST SURGICAL HISTORY: Lumbar back surgery, herniated disk surgery, carpal tunnel surgery, history of left forefoot amputation due to gangrene, history of peripheral vascular disease of the left lower extremity with stents, status post cerebrovascular accident, history of DVT. SOCIAL HISTORY: Active tobaccoism. PHYSICAL EXAMINATION: GENERAL: Shows an alert, obese gentleman who is appropriate and conversant. VITAL SIGNS: He is afebrile. HEENT: Mucous membranes are moist. [address] [address] CONSULTATION Name: GLO BORGES Room #: 427-P [facility] IN M.R.#: [id number] Admission: 02/10/19 Attend Phys: Vikash Avila MD Discharge: Date of : 72 Report #: [id number] NECK: Supple. LUNGS: Respirations unlabored. ABDOMEN: Obese. LOWER EXTREMITIES: Shows healed forefoot amputation, left foot. Examination of the right foot shows some swelling of the foot and slight redness of the mid foot. On the lateral aspect of the right foot, there is a dark black necrotic area measuring 3.5 x 2.5 cm with a necrotic eschar, which is soft, slightly mobile. This has a foul smell. IMPRESSION: 1. Diabetes mellitus type 2 with foot ulcer with gangrene. The patient showed early signs of sepsis and needed pressors on admission. He has previous left forefoot amputation. 2. Peripheral vascular disease. 3. Diabetic neuropathy. 4. Obesity. 5. Status post cerebrovascular accident. 6. Status post deep venous thrombosis. 7. Active tobaccoism. 8. History of myocardial infarction. PLAN: Discussed with Dr. Aziza Allen, the patient has gangrenous ulcer of the right foot with necrotic tissue, foul smelling. This will require aggressive surgical debridement and Dr. Allen placed the patient on the operating room schedule for tomorrow for debridement. Continue ICU support, broad spectrum antibiotics, wound care. We will follow. <ELECTRONICALLY SIGNED> By: Leeroy López MD 02/12/19 1519 1424 [id number] Leeroy López MD /nt
[2019-02-13 03:57] VITALS: BP 93/34
[2019-02-13 05:53] LABS: HEMATOCRIT 27.2 % (42.0-52.0); HEMOGLOBIN 9.4 gm/dL (14.0-18.0); MCH 34.4 pg (26.0-34.0); MCHC 34.5 g/dL (28.0-37.0); MCV 99.6 fL (80.0-100.0); RBC 2.73 mil/uL (4.50-6.00); RDW 13.7 % (10.5-14.5); WBC 8.1 thou/uL (4.0-11.0)
[2019-02-13 07:17] VITALS: BP 115/72
--- NOTE | 2019-02-13 07:33 | NUR ---
PT LYING IN BED. LORTAB PROVIDING PAIN RELIEF. VOIDING PER URINAL. RESTING COMFORTABLY. NO NEEDS VOICED. CALL LIGHT WITHIN REACH. KERVIN CONTINUE TO PROVIDE FREQUENT OBSERVATION.
[2019-02-13 08:57] LABS: ALBUMIN 2.6 g/dL (3.4-5.0); CALCIUM 9.3 mg/dL (8.5-10.1); CREATININE 1.2 mg/dL (0.7-1.3); POTASSIUM 4.7 mmol/L (3.5-5.1); TOTAL BILIRUBIN 0.4 mg/dL (<0.1-1.0); TOTAL PROTEIN 6.5 g/dL (6.4-8.2)
--- NOTE | 2019-02-13 14:13 | NUR ---
PT ADMITTED RELATED TO WOUND ON RT FOOT. CM REVIEWED CHART AND SPOKE WITH CARE TEAM. CM MET WITH PT AT BEDSIDE THIS DAY. PT IS A&O X4. CM ROLE INTRODUCED. PT INDICATED THAT HE LIVES IN A DUPLEX WITH HIS FIANCE WITH 2 STEPS TO ENTER AND NO STEPS INSIDE. PT INDICATED HE HAS CRUTCHES AND A FWW FOR USE UPON DC. PT INDICATED NO HH HX. PT INDICATED HE PLANS TO DC HOME ONCE MEDICALLY STABLE. CM TO FOLLOW INDICATED WITH DC PLANNING.
--- NOTE | 2019-02-13 14:44 | NUR ---
Assumed care of pt at 0700. Pt a&o x4. Dressing on right foot changed. New dressing clean and intact. Pt c/o of some abd pain. Abd ultrasound ordered. IVF and antibiotics infusing. Call light within reach. Will continue to monitor.
[2019-02-13 17:14] VITALS: BP 122/82
--- NOTE | 2019-02-13 20:18 | NUR ---
CONSULTED TO PLACE A PICC FOR A PATIENT NEEDING HOME IV ANTIBIOTICS. ORDER AND CONSENT NOTED. THE PROCEDURE WELL BENIFITS AND RISKS FOR DVT AND INFECTION WERE DISCUSSED AND HE VERBALIZED UNDERSTANDING. THE PATIENT REQUESTED THE LEFT ARM. THE LEFT CEPHALIC VEIN WAS WIDLEY PATENT. A #4F SINGLE LUMEN POWER PICC WAS PLACED AFTER A BEDSIDE TIMEOUT WAS COMPLETED. LINE PLACED PER POLICY. LINE TRIMMED TO 55CM AND ADVANCED WITHOUT DIFFICULTY. A STAT CHEST XRAY CONFIRMED LINE IS IN THE SVC AND RELEASED FOR USE. 4E YOU[employer] OFFICER NOTIFIED THE LINE IS OK TO USE
[2019-02-13 20:36] VITALS: BP 122/73
--- NOTE | 2019-02-14 02:42 | NUR ---
ASSUMED CARE OF PT @1900 PT ASSESSED AT START OF SHIFT A&OX4. C/O PAIN AND PAIN MEDICATION GIVEN FOR MANAGEMENT SEE EMAR. DRESSING CHANGE DONE PER ORDERS. USES URINAL AT NIGHT. IV FLUIDS GIVEN AND PT GABBY MEDS WELL. FALL PREC IN PLACE AND WILL CONTINUE TO MONITOR TILL EOS.
[2019-02-14 03:50] VITALS: BP 115/65
[2019-02-14 08:18] VITALS: BP 109/62
--- NOTE | 2019-02-14 10:01 | NUR ---
Assess due to notification of pt with wound right foot s/p debridement. Hx partial left foot amputation, dm with complications, CVA, acute/chronic renal failure. Good appetite, wts appear to show increase1 15-45 lb this past year however did have edema in past. Seen by endocronologist, on insulin regimen with good BG control. A1C 8.4 and improved from prior 9.5%. Pt voiced no questions regarding diet, eats higher protein meals. Menu provided for alternative selections. Low nutrition risk
--- NOTE | 2019-02-14 14:06 | PATH ---
[facility] [address] [address] [place] [address] PATHOLOGY RPT PROCEDURE Name: GLO VILLAGOMEZ Room #: 427-P [facility] IN M.R.#: [id number] Admission: 02/10/19 Date of : 72 Discharge: Report #: [id number] Path Case #: [id number] [facility] Accession Number: [id number] . 01 Material submitted: . foot - RIGHT FOOT WOUND. Modifiers: right . 01 Clinical history: . Right foot diabetic ulcer . 02 Diagnosis: Soft tissue, "right foot wound", biopsy: - Largely necrotic soft tissue with bacteria and scattered white blood cells. (SKM/db; 02/14/2019) LBQ/02/14/2019 . 02 Electronically signed: . John Pak MD, Pathologist NPI- [id number] . 01 Gross description: . The specimen is received in formalin, labeled "Glo Villagomez, right foot wound". Received is a segment of brown-black, necrotic-appearing possible skin with underlying necrotic soft tissue measuring 4.5 x 3.5 x 1.4 cm in greatest dimensions. The specimen is submitted representatively in cassette A1. (CAA; 02/13/2019) QAC/QAC . 02 Pathologist provided ICD-10: E13.622 . 02 CPT . 450460 Specimen Comment: A courtesy copy of this report has been sent to Specimen Comment: [phone], . Specimen Comment: Report sent to / DR MITCHELL Performed at: [address] [facility], [place], [place] [id number] MD Rubén Espinoza MD Phone: [phone] Performed at: [address] [facility] [id number] MD Eden Landaverde MD Phone: [phone]
[2019-02-14 15:58] VITALS: BP 112/67
--- NOTE | 2019-02-14 16:02 | NUR ---
FAXED REFERRAL TO AN TO CHECK ON IV ABX BENEFITS SPOKE WITH WILNER IN INTAKE AND SHE RECEIVED REFERRAL. DCP TO FOLLOW.
--- NOTE | 2019-02-14 16:22 | NUR ---
Care team indicated that patient requires home infusion services for iv antibiotics to treat infection of a diabetic foot wound upon discharge. The drug is covered at %100 by his Medicaid but supplies will cost $25.00 per day, $175.00 per week. The patient has indicated he isn't able to afford the supplies. Cm contacted [facility] for the [employer] and Cm completed request for assistance form online to see if they will authorize assistance to pay ranjith the $500.00 to cover almost 3 full weeks of supplies for home iv antibiotic therapy. Cm spoke with Elsie Fox and with [employer] and both are agreeable. Cm to follow as indicated with dc planning.
--- NOTE | 2019-02-14 17:10 | NUR ---
AAOX4 PLEASANT AND COOPERATIVE. PERCOCET GIVEN FOR PAIN WITH GOOD RELIEF. DRESSING CHANGE TO RIGHT LATERAL ANKLE WITH SILVADENE CREAM AND WRAPPED WITH KERLIX. GOOD APPETITE FOR MEALS. VOIDS PER URINAL. IV RIGHT UPPER PICC DRESSING CHANGED PER IV NURSE.
[2019-02-14 19:32] VITALS: BP 125/76
[2019-02-14 21:53] LABS: HEMATOCRIT 30.9 % (42.0-52.0); HEMOGLOBIN 10.8 gm/dL (14.0-18.0); MCH 34.3 pg (26.0-34.0); MCHC 34.9 g/dL (28.0-37.0); MCV 98.2 fL (80.0-100.0); RBC 3.15 mil/uL (4.50-6.00); RDW 13.3 % (10.5-14.5); WBC 8.8 thou/uL (4.0-11.0)
[2019-02-14 22:04] LABS: ANION GAP 11 mmol/L (7-16); BUN 16 mg/dL (7-18); CHLORIDE 101 mmol/L (98-107); CO2 21 mmol/L (21-32); CREATININE 0.9 mg/dL (0.7-1.3); GLUCOSE 177 mg/dL (74-106); POTASSIUM 4.6 mmol/L (3.5-5.1); SODIUM 133 mmol/L (136-145)
[2019-02-14 22:12] LABS: ALBUMIN 2.7 g/dL (3.4-5.0); MAGNESIUM 1.8 mg/dL (1.8-2.4); SGOT 18 U/L (15-37); SGPT 17 U/L (30-65); TOTAL BILIRUBIN 0.4 mg/dL (<0.1-1.0); TROPONIN-I <0.06 ng/mL (<0.06)
--- NOTE | 2019-02-14 22:12 | NUR ---
LAW TUTOR called at 2108 for sudden onset of chest pain and soa. See LAW TUTOR flowsheet.
[2019-02-14 23:15] VITALS: BP 117/73
--- NOTE | 2019-02-14 23:27 | NUR ---
ASSUMED CARE OF PT @1900. PT A&OX4 ON RM/AIR. @2109 PT STARTED COMPLAINING OF DIFFICULTLY BREATHING AND CHEST PAIN. RAPID RESPONSE CALLED. ANIMAL CARE ASSISTANT PHOTOGRAPHER'S MODEL CALLED AND ORDERS PLACED STAT EKG, CT AND LAB DRAWN ON PT. ON ROM/AIR O2 @96%. PLACED PT ON 1L OF O2. PT TAKEN DOWN FOR A CT SCAN AFTWARDS STARTED COMPLAINING OF NAUSEA. EMESIS NOTED AND ZOFARN GIVEN. PT STATED HE IS FEELING BETTER O2 REMOVED AND BACK ON RM/AIR CALLED AND GAVE REPORT TO BARRETT ON 2NORTH. PT PLACED ON TELE STRIPS AND TRANSFERRED TO ROOM 210.
[2019-02-15 04:25] VITALS: BP 122/63
--- NOTE | 2019-02-15 04:48 | NUR ---
ASSESSMENTS CHARTED. TRANSFERED FROM AFTER AIRFRAME TECHNICIAN FOR TROUBLE BREATHING. CT PERFORMED. PATIENT ARRIVED ON ONE LITER OXYBEN 97%. REDRESSED AND TREATED RIGHT FOOT WOUND. AbiBORJAS INCREASED NS TO 125. CT NEGATIVE FOR PE. C/O PAIN IN RIGHT FOOT 02/04. MEDICATED CHARTED. PLAN OF CARE TO CONTINUE CURRENT CARES.
[2019-02-15 08:15] VITALS: BP 116/66
[2019-02-15 11:48] VITALS: BP 125/74
--- NOTE | 2019-02-15 11:59 | NUR ---
UPDATED IV INFUSION RECS WERE SENT TO AN. ADELFO NOTIFIED PT YESTERDAY THAT HE HAD BEEN APPROVED FOR $500.00 FROM THE [employer] TO COVER HIS INFUSION SUPPLIES. ADELFO NOTIFIED KENAN WITH AN AND FORWARDED APPROVAL NOTIFICATION EMAIL TO HER WITH PT'S CASE REFERENCE NUMBER [id number]. THEY WILL COORDINATE WITH SIGNITURE FOR PAYMENT.
--- NOTE | 2019-02-15 13:19 | EKG ---
[place] [address] [facility] [facility] [place] [address] ELECTROCARDIOGRAM REPORT Name: GLO BORGES Room #: 210-P ADM IN M.R.#: [id number] Admission: 02/10/19 Attend Phys: Vikash Avila MD Discharge: Date of : 72 Report #: [id number] THIS REPORT FOR: //name// [facility] Test Date: 2019-02-14 Test Time: 21:24:35 Pat Name: GLO BORGES Department: Room: 210 Gender: M Network Desktop Support Specialist: Navarro VEE : 1970 Requested By: Carine Gallardo Order Number: [id number] MD: Cheko Nguyễn Measurements Intervals [place] Rate: 97 P: 59 WI: 154 QRS: 0 QRSD: 102 T: 122 QT: 334 QTc: 425 Interpretive Statements Sinus rhythm Poor R wave progression Compared to ECG 12/26/2018 07:16:16 No significant change was found Electronically Signed On 02-15-2019 13:19:47 CDT by Cheko Nguyễn [email or web address] <ELECTRONICALLY SIGNED> By: Cheko Nguyễn MD, [facility] 02/15/19 1319 2124 23 Cheko Nguyễn MD, FACC /EPI
[2019-02-15 16:36] VITALS: BP 144/83
--- NOTE | 2019-02-15 16:53 | NUR ---
ASSESSMENT CHARTED - MEDS PER AUG - GIVEN PEROCET PRIOR TO CLEANING OF FOOT WOUND BY PHYS THERDHARMESH THIS AFTERNOON. GABBY DIET AND FLUIDS WITH NO CO'S OF NAUSEA. PT UP AT THE SIDE OF BED TO VOID. DRESSING TO R FOOT CHANGES X 3 TODAY - PICTURE ON CHART. PICC LINE REMAINS INSITU - PT AND SIG OTHER WITH TEACHING IN REGARDS TO HOME ANTIBIOTICS - SWS NOTIFIED HH FOR DRESSING NEEDS ETC. ACCUCHECKS CHARTED. PT TO GO HOME THIS EVENIGN AWAITING FINAL ORDERS FROM HIMS DOC.
--- NOTE | 2019-02-15 17:14 | NUR ---
Patient to dc home today with HH f/u care via [facility] in am for morning antibiotic tx and [facility]. Patient rec teaching for antibiotic and has s/o who is teachable. Patient to dc to [address] [place], [place] [id number]. Both [facility] and [facility] aware of address for dc. Supplies to patient for dc. Patient covered for antibiotic supplies up to $500. Plan for HH to bring wound care supplies and updated patient. Plan home this evening.
[2019-02-15 17:19] VITALS: BP 144/83
[2019-02-15] MEDS ORDERED: PROBIOTIC1 EAC1 PO (17:37)
[2019-02-15] MEDS ORDERED: LINEZOLID600 MG PO (17:37)
[2019-02-15] MEDS ORDERED: XARELTO15 MG PO (17:37)
[2019-02-15] MEDS ORDERED: INVANZ1 GM IV (17:37)
[2019-02-15] MEDS ORDERED: MIRALAX17 GM PO (17:37)
[2019-02-15] MEDS ORDERED: COREG6.25 MG PO (17:38)
--- NOTE | 2019-02-15 18:51 | NUR ---
PT LEFT UNIT THIS EVEING- INSTRUCTION RE HOME MEDS/ FOLLOW AND CARE GIVEN - NO CO'S AT TIME OF D/C.
== END 2019-02-15 18:45 | disposition home health service (06) | DRG 854 ==
LOC: ER 15:39 → EROBS 17:56 → 4E 17:56 → ICU 22:12 → 4E 02-11 17:25 → 2N 02-14 23:12
PROVIDERS: Hospitalist; Internal Medicine; Nurse Practitioner Family; Physician Assistant; ADMIT Hospitalist
PROC: 0KBV0ZZ Excision of Right Foot Muscle, Open Approach (ICD-10-PCS; principal; 2019-02-12)
PROC: 02HV33Z Insertion of Infusion Device into Superior Vena Cava, Percutaneous Approach (ICD-10-PCS; 2019-02-13)
DX: A41.9 Sepsis, unspecified organism (principal); N17.9 Acute kidney failure, unspecified; I42.9 Cardiomyopathy, unspecified; I50.22 Chronic systolic (congestive) heart failure; E11.52 Type 2 diabetes mellitus with diabetic peripheral angiopathy with gangrene; I96 Gangrene, not elsewhere classified; I13.0 Hypertensive heart and chronic kidney disease with heart failure and stage 1 through stage 4 chronic kidney disease, or unspecified chronic kidney disease; E44.0 Moderate protein-calorie malnutrition; E11.22 Type 2 diabetes mellitus with diabetic chronic kidney disease; N18.3 Chronic kidney disease, stage 3 (moderate); E11.621 Type 2 diabetes mellitus with foot ulcer; L97.519 Non-pressure chronic ulcer of other part of right foot with unspecified severity; I25.10 Atherosclerotic heart disease of native coronary artery without angina pectoris; K21.9 Gastro-esophageal reflux disease without esophagitis; E11.42 Type 2 diabetes mellitus with diabetic polyneuropathy; M19.90 Unspecified osteoarthritis, unspecified site; E83.51 Hypocalcemia; E11.319 Type 2 diabetes mellitus with unspecified diabetic retinopathy without macular edema; E66.9 Obesity, unspecified; E78.5 Hyperlipidemia, unspecified; F17.210 Nicotine dependence, cigarettes, uncomplicated; I25.2 Old myocardial infarction; Z68.38 Body mass index [BMI] 38.0-38.9, adult; Z89.422 Acquired absence of other left toe(s); Z95.820 Peripheral vascular angioplasty status with implants and grafts; Z86.718 Personal history of other venous thrombosis and embolism; Z86.73 Personal history of transient ischemic attack (TIA), and cerebral infarction without residual deficits; Z79.01 Long term (current) use of anticoagulants; Z79.4 Long term (current) use of insulin; Z79.82 Long term (current) use of aspirin; Z79.899 Other long term (current) drug therapy; Z88.0 Allergy status to penicillin
CPT/HCPCS: 10078; 10081; 10084; 10183; 10797; 27000; 50101; 50386; 57091; 57179; 62110; 62900; 70005

== ENCOUNTER → 2019-02-21 | Outpatient (CLI) | payer OTHER ==
[~2019-02-21] MED LIST changes: +COREG6.25 MG PO; +INVANZ1 GM IV; +LINEZOLID600 MG PO; +LISINOPRIL2.5 MG PO; +MIRALAX17 GM PO; +PROBIOTIC1 EAC1 PO; +XARELTO15 MG PO
== END ==
LOC: HYPER
DX: E11.621 Type 2 diabetes mellitus with foot ulcer (principal); L97.516 Non-pressure chronic ulcer of other part of right foot with bone involvement without evidence of necrosis; E11.51 Type 2 diabetes mellitus with diabetic peripheral angiopathy without gangrene; E11.43 Type 2 diabetes mellitus with diabetic autonomic (poly)neuropathy; R60.0 Localized edema; K21.9 Gastro-esophageal reflux disease without esophagitis; M19.90 Unspecified osteoarthritis, unspecified site; F17.200 Nicotine dependence, unspecified, uncomplicated; Z86.73 Personal history of transient ischemic attack (TIA), and cerebral infarction without residual deficits; Z95.828 Presence of other vascular implants and grafts; Z89.422 Acquired absence of other left toe(s); Z79.4 Long term (current) use of insulin

== ENCOUNTER 2019-03-01 16:42 | Inpatient (IN) | payer OTHER ==
[~2019-03-01] VITALS: Ht 198.1 cm; Wt 148.3 kg
[2019-03-01] VITALS (12 sets, daily range): BP systolic 88–126; BP diastolic 51–82
--- NOTE | ~2019-03-01 | HC ---
[facility] [place] [address] CONSULTATION Name: KATERINAGLO EVANGELISTA Room #: 241-P [facility] IN ..#: [id number] Admission: 03/01/19 Attend Phys: Vikash Avila MD Discharge: 03/02/19 Date of : 72 Report #: [id number] THIS REPORT FOR: //name// CC: JULIANO physician/PCP Vikash Avila DATE OF SERVICE: 03/02/2019 INFECTIOUS DISEASES CONSULTATION REASON FOR CONSULTATION: Evaluate foot diabetic wound and osteomyelitis. HISTORY OF PRESENT ILLNESS: The patient is a 48-year-old who was recently hospitalized with diabetic foot infection with significant tissue loss and osteomyelitis. He underwent surgical debridement, was discharged on Zyvox and ertapenem ____ culture for Enterococcus and Bacteroides. He had previously been on antibiotic ____. He had a right upper extremity PICC placed. He was discharged 2 weeks ago. He followed up in the outpatient clinic on 03/01/2019 with hypotension, blood pressure in the 70s. He was unsteady in his gait. No chest pain or syncopal episodes. Denied any blood loss. He had been anticoagulated. He had a poor appetite and had been taking his antihypertensive therapy. He is on lisinopril tapering dose the morning prior. Review of laboratory studies from 02/28/2019 showed hemoglobin of 7. Because of his generalized weakness, hypotension and anemia, he was transferred to the Emergency Room, where he was re-evaluated. There, his laboratory studies were repeated; hemoglobin was 10. He received 3 liters of IV fluid, but blood pressure still did not come up. He was placed on vasopressor and transferred to the Intensive Care Unit. He remained there overnight and showed improvement. Blood pressure now is stable and able to eat. No GI blood loss was identified. He continues to have a fair amount of pain in his right foot. Minimal drainage. Still has peripheral edema. He does have underlying peripheral vascular disease and has had stent placement. REVIEW OF SYSTEMS: Denied any cough or sputum production. No nausea, vomiting or diarrhea. No dysuria. He does have lower extremity edema. A 10-point review of system was negative other than what is described above. ALLERGIES: PENICILLIN with swelling. MEDICATIONS: As noted on his MAR, now including ertapenem. He had completed his course of Zyvox. PAST MEDICAL HISTORY: Diabetes, low back surgery for disk disease, gastroesophageal reflux, diabetic neuropathy, carpal tunnel syndrome, previous left foot toe amputations, peripheral vascular disease, cerebrovascular disease, hyperlipidemia, right foot debridement was on 02/12/2019, [place] [address] CONSULTATION Name: GLO BORGES Room #: 241-P [facility] IN M.R.#: [id number] Admission: 03/01/19 Attend Phys: Vikash Avila MD Discharge: 03/02/19 Date of : 72 Report #: [id number] failure, DVT and chronic kidney disease. FAMILY HISTORY: Noncontributory. SOCIAL HISTORY: Smoker of cigarettes, past alcohol use, marijuana use. PHYSICAL EXAMINATION: VITAL SIGNS: Currently afebrile and hemodynamically stable. GENERAL: He is alert and cooperative. He had 2+ peripheral edema. Right upper extremity PICC moved out. No erythema or discharge. No palpable adenopathy. HEENT: Eyes without scleral icterus. Mouth without mucositis. NECK: Supple. LUNGS: Clear. HEART: Regular, without murmur, gallop or rub. ABDOMEN: Soft and nontender. EXTREMITIES: Right foot open wound over the lateral aspect of his mid foot had a large defect from surgical debridement. There was fibrinous debris at the base of the wound including coverage of the mid foot bones. There was no purulent drainage. He has a small amount of odor to the wound. There was no surrounding cellulitis. Sensation was diminished in his feet bilaterally to fine touch. NEUROLOGIC: Cranial nerves were intact. Strength in his upper and lower extremities was symmetric. Mood was normal with no evidence of anxiety or depression. BACK: Nontender with no CVA tenderness. GENITORECTAL: Not performed.. LABORATORY STUDIES: Hemoglobin is 9.1, WBC 6.5, and platelet 247,000. Sodium 140, potassium 4.9, bicarbonate 26, creatinine 1.5, down from 2.1 yesterday. Liver function test normal. Lactate 0.7. INR 1.2. Blood cultures were obtained and are negative so far. Chest x-ray with cardiomegaly, no other acute pulmonary infiltrates. IMPRESSION: 1. Shock from dehydration and anemia. So far, no infection identified outside of his known right foot diabetic infection with osteomyelitis, who continues IV antibiotic therapy. 2. Diabetes. 3. Peripheral vascular disease. 4. Peripheral neuropathy. RECOMMENDATIONS: We will continue his current antibiotic program while awaiting [address] [place] [address] CONSULTATION Name: GLO BORGES Room #: 241-P [facility] IN M.R.#: [id number] Admission: 03/01/19 Attend Phys: Vikash Avila MD Discharge: 03/02/19 Date of : 72 Report #: [id number] repeat cultures. Monitor serial hemoglobin. Continue localized wound care. We will need further debridement. By: [id number] Elieser Billingsley MD /nt
[2019-03-01 17:22] LABS: HEMATOCRIT 28.7 % (42.0-52.0); MCH 34.4 pg (26.0-34.0); MCHC 34.8 g/dL (28.0-37.0); MCV 98.8 fL (80.0-100.0); RBC 2.9 mil/uL (4.50-6.00); RDW 13.9 % (10.5-14.5); WBC 9.3 thou/uL (4.0-11.0)
[2019-03-01 17:26] LABS: CALCIUM 8.7 mg/dL (8.5-10.1); CREATININE 2.1 mg/dL (0.7-1.3); POTASSIUM 4.6 mmol/L (3.5-5.1)
[2019-03-01 17:33] LABS: TOTAL BILIRUBIN 0.2 mg/dL (<0.1-1.0); TOTAL PROTEIN 7.1 g/dL (6.4-8.2)
[2019-03-01 18:04] LABS: APTT 34.7 Seconds (24.5-32.8); INR 1.2; PROTIME 12.3 Seconds (9.3-11.4)
--- NOTE | 2019-03-01 21:30 | NUR ---
Pt arrived ICU via stretcher, accompnaied withER staff. He is being admit for Hypotension. BP stable upon arrival. Levophed is off for now. Denies of any pain or discomfort. NSR on monitor. No fever upon arrival. Dressing on Rt foot is D/C/I. Hx ontained for pt and significant other. Care plans are initiated, continue working toward goals.
[2019-03-02] VITALS (24 sets, daily range): BP systolic 94–136; BP diastolic 53–92
--- NOTE | 2019-03-02 03:22 | NUR ---
Pt remains off levophed gtt. He is resting well tonight. This RN obtained wound culture on Rt foot as order. Picture obtained, gave wound care as chart per Intervention. He is carlitos procedure well. His significant other at bedside. MICA PASTER visited. Continue progressing toward goals.
[2019-03-02 05:20] LABS: CALCIUM 8.3 mg/dL (8.5-10.1); CREATININE 1.5 mg/dL (0.7-1.3); POTASSIUM 4.9 mmol/L (3.5-5.1)
[2019-03-02 05:50] LABS: HEMATOCRIT 29.6 % (42.0-52.0); HEMOGLOBIN 9.9 gm/dL (14.0-18.0); MCH 34.1 pg (26.0-34.0); MCHC 33.5 g/dL (28.0-37.0); MCV 101.8 fL (80.0-100.0); RBC 2.91 mil/uL (4.50-6.00); WBC 6.5 thou/uL (4.0-11.0)
--- NOTE | 2019-03-02 11:32 | NUR ---
RD Consult received for evaluation. Admit with hypotension. Familiar with pt from recent admit last month. Has hx diabetes w/complications, cva, partial left foot amputation and chronic right foot wound. Obesity w/ BMI of 37.8, and wt gain with past hx edema. BG controlled, voices no questions. RN reports pt has been asking to get discharged. Low nutrition risk.
--- NOTE | 2019-03-02 13:25 | NUR ---
pt progressing this shift and he wants to go home. dr. oseguera present, per pt insisting that he is going home, agreed to evaluate bp status at noon. wound care present to see pt, dressing changed and recommendations given. bp continued to improve, call placed to dr. oseguera for potential discharge. discharge orders placed. pt discharged to home with discharge instructions.
--- NOTE | 2019-03-03 09:03 | HC ---
[facility] [place] [address] CONSULTATION Name: KATERINAGLO EVANGELISTA Room #: 241-P [facility] IN M.R.#: [id number] Admission: 03/01/19 Attend Phys: Vikash Avila MD Discharge: 03/02/19 Date of : 72 Report #: [id number] THIS REPORT FOR: //name// CC: JULIANO physician/PCP Vikash Avila DATE OF SERVICE: 03/02/2019 CHIEF COMPLAINT: Diabetic foot ulceration to the right foot. HISTORY OF PRESENT ILLNESS: This is a 48-year-old male patient who was evaluated earlier in the month of January, who had an ulceration to his right lateral foot with infection. He had an MRI, which demonstrated possible early signs of osteomyelitis; although, it was not definitive. He underwent a surgical debridement of the right lateral necrotic foot wound by Dr. Aziza Allen on 02/12/2019 undergoing debridement of the right skin, subcutaneous tissue and muscle, leaving bone intact including base of the fifth metatarsal. The patient is also noted to have peripheral arterial disease. He has undergone 2 endovascular procedures on the left side in the past. He had an arterial Doppler study, which demonstrated diffuse bilateral lower extremity peripheral arterial disease. Abnormal monophasic arterial waveforms demonstrated all visualized level. Left SFA artery endovascular stent patent. Systolic velocities within the stent are within normal limits. He is readmitted late yesterday after having been found hypotensive while visiting Dr. Billingsley in the office. The patient states he has been feeling well today and feels that his blood pressures remained stable and he is actually hoping to go home. He is being followed by Dr. Timmons as an outpatient and was just started on topical Santyl. They have not initiated that therapy yet, but the medication has been received. PAST MEDICAL HISTORY: Positive for type 2 diabetes mellitus, history of congestive heart failure, hyperlipidemia, peripheral arterial disease, [id number] renal failure and the diabetic foot ulcer, Roca 3 of the right lateral foot. CURRENT MEDICATIONS: Include Tylenol, aspirin, Lipitor, Coreg, dicyclomine, Invanz, glucagon, Lantus insulin, Isordil, pantoprazole, polyethylene glycol, Lyrica, Xarelto, tamsulosin. ALLERGIES: PENICILLIN. SOCIAL HISTORY: Positive for past alcohol use. Current for cigarette use, 1-2 packs per day for the last 40 years. Also uses marijuana on occasion. REVIEW OF SYSTEMS: [address] [address] CONSULTATION Name: GLO BORGES Room #: 241-P [facility] IN ..#: [id number] Admission: 03/01/19 Attend Phys: Vikash Avila MD Discharge: 03/02/19 Date of : 72 Report #: [id number] CONSTITUTIONAL: The patient denies fever, chills or weight loss. NEUROLOGICAL: The patient denies focal weakness, numbness or tingling. EYES: The patient denies visual changes, redness, or drainage. ENT: The patient denies earache, nasal drainage or sore throat. CARDIOVASCULAR: The patient denies chest pain or palpitations or diaphoresis. PULMONARY: The patient denies cough or shortness of breath. GASTROINTESTINAL: The patient denies nausea, vomiting, diarrhea or abdominal pain. ORTHOPEDIC: The patient is aware of the ulceration on the right lateral foot. He does not have pain associated with this. Other systems in a 14-point review of systems are negative. PHYSICAL EXAMINATION: VITAL SIGNS: At this time include pulse rate of 81, respiratory rate 15, blood pressure 106/65, pulse oximetry 86% on room air. GENERAL: This is a chronically ill-appearing male patient who appears to be in no distress. HEENT: Head normocephalic. Nose and throat clear. NECK: Supple. LUNGS: Clear. HEART: Regular rate and rhythm. ABDOMEN: Soft, bowel sounds present. EXTREMITIES: Lower extremities demonstrate diminished distal pulses; although, the skin is pink, warm and dry. He has a fairly large ulceration on the lateral aspect of the right foot at the base of the fifth metatarsal. Periosteal connective tissue is visible. There is some granulation tissue on the more dorsal aspect of the wound base and it is more fibrous with some connective tissue exposed more towards the plantar side and does not appear to be overtly infected. NEUROLOGIC: The patient is alert and oriented and appropriate. LABORATORY DATA: Includes white blood cell count 6.5, hemoglobin of 9.9. Sodium 140, potassium 4.9, chloride 107, CO2 of 26, BUN 25, creatinine 1.5, glucose 154. Last albumin was noted to be 3.0 on 03/01/2019. CLINICAL IMPRESSION: 1. Roca grade 3 diabetic foot ulceration of the right lateral foot, status post surgical debridement on 02/12/2019. 2. Peripheral arterial disease. He is status post vascular evaluation. I reviewed the vascular studies with Dr. Santamaria. He did not feel that any particular intervention would be warranted at this time. He has had previous endovascular procedures on the left side. The patient has evidence of osteitis on his MRI. He is receiving antibiotic therapy and being followed by Infectious Disease. RECOMMENDATIONS: At this point in time, we will recommend [address] [address] CONSULTATION Name: GLO BORGES Room #: 241-P [facility] IN M.Kurtis.#: [id number] Admission: 03/01/19 Attend Phys: Vikash Avila MD Discharge: 03/02/19 Date of : 72 Report #: [id number] Dakin's moist gauze dressing to be applied daily while here in the hospital. Likely, he will be going home soon. It does not appear that he needs any further vascular intervention. We will continue with antibiotic therapy, local wound care and debridements. I think that he may be an appropriate candidate for hyperbaric oxygen therapy. Should there is still be in any failure to improve by 03/15/2019 as he has had all appropriate modalities utilized including vascular evaluation, debridements, treatment of infection and efforts to maximize his diabetic control already underway. I appreciate being asked to see him in consultation. <ELECTRONICALLY SIGNED> By: Amadou Bose MD 03/03/19 0903 1130 [id number] Amadou Bose MD /nt
== END 2019-03-02 13:50 | disposition home or self-care (01) | DRG 315 ==
LOC: ER 16:42 → EROBS 20:24 → ICU 20:24
PROVIDERS: Emergency Medicine; Nurse Practitioner Acute Care; ADMIT Hospitalist
PROC: 02H633Z Insertion of Infusion Device into Right Atrium, Percutaneous Approach (ICD-10-PCS; principal; 2019-03-01)
DX: I95.9 Hypotension, unspecified (principal); I69.354 Hemiplegia and hemiparesis following cerebral infarction affecting left non-dominant side; I50.22 Chronic systolic (congestive) heart failure; I13.0 Hypertensive heart and chronic kidney disease with heart failure and stage 1 through stage 4 chronic kidney disease, or unspecified chronic kidney disease; N17.9 Acute kidney failure, unspecified; E11.621 Type 2 diabetes mellitus with foot ulcer; K59.09 Other constipation; K21.9 Gastro-esophageal reflux disease without esophagitis; E11.40 Type 2 diabetes mellitus with diabetic neuropathy, unspecified; M19.042 Primary osteoarthritis, left hand; M19.041 Primary osteoarthritis, right hand; E78.5 Hyperlipidemia, unspecified; F12.90 Cannabis use, unspecified, uncomplicated; E11.65 Type 2 diabetes mellitus with hyperglycemia; E11.22 Type 2 diabetes mellitus with diabetic chronic kidney disease; E11.51 Type 2 diabetes mellitus with diabetic peripheral angiopathy without gangrene; E86.0 Dehydration; D64.9 Anemia, unspecified; N18.3 Chronic kidney disease, stage 3 (moderate); Z89.422 Acquired absence of other left toe(s); Z88.0 Allergy status to penicillin; Z95.820 Peripheral vascular angioplasty status with implants and grafts; Z86.718 Personal history of other venous thrombosis and embolism
CPT/HCPCS: 10078

== ENCOUNTER → 2019-03-06 | Outpatient (CLI) | payer OTHER | LOC: HYPER 06:55 | DX: E11.621 Type 2 diabetes mellitus with foot ulcer (principal); L97.512 Non-pressure chronic ulcer of other part of right foot with fat layer exposed; L84 Corns and callosities; E11.51 Type 2 diabetes mellitus with diabetic peripheral angiopathy without gangrene; E11.43 Type 2 diabetes mellitus with diabetic autonomic (poly)neuropathy; R60.0 Localized edema; K21.9 Gastro-esophageal reflux disease without esophagitis; M19.90 Unspecified osteoarthritis, unspecified site; F17.200 Nicotine dependence, unspecified, uncomplicated; Z95.5 Presence of coronary angioplasty implant and graft; Z89.422 Acquired absence of other left toe(s); Z79.4 Long term (current) use of insulin; Z86.73 Personal history of transient ischemic attack (TIA), and cerebral infarction without residual deficits ==

== ENCOUNTER → 2019-03-20 | Outpatient (CLI) | payer OTHER | LOC: HYPER 07:03 | DX: E11.621 Type 2 diabetes mellitus with foot ulcer (principal); L97.512 Non-pressure chronic ulcer of other part of right foot with fat layer exposed; E11.51 Type 2 diabetes mellitus with diabetic peripheral angiopathy without gangrene; E11.43 Type 2 diabetes mellitus with diabetic autonomic (poly)neuropathy; L84 Corns and callosities; K21.9 Gastro-esophageal reflux disease without esophagitis; M19.90 Unspecified osteoarthritis, unspecified site; F17.200 Nicotine dependence, unspecified, uncomplicated; Z86.73 Personal history of transient ischemic attack (TIA), and cerebral infarction without residual deficits; Z89.422 Acquired absence of other left toe(s); Z79.4 Long term (current) use of insulin ==

== ENCOUNTER 2019-04-14 12:01 | Inpatient (IN) | payer OTHER ==
[~2019-04-14] VITALS: Ht 198.1 cm; Wt 86.2 kg
[~2019-04-14 12:01] MED LIST changes: +CARVEDILOL12.5 MG PO; +LIPITOR40 MG PO; +TUMS200 MG PO
[2019-04-14 14:26] LABS: CALCIUM 9.5 mg/dL (8.5-10.1); CREATININE 1.2 mg/dL (0.7-1.3); POTASSIUM 3.9 mmol/L (3.5-5.1)
[2019-04-14 15:00] VITALS: BP 119/76
[2019-04-14 18:01] VITALS: BP 104/62
[2019-04-14 18:15] VITALS: BP 104/62
[2019-04-14 19:00] VITALS: BP 127/80
--- NOTE | 2019-04-14 19:14 | NUR ---
PATIENT ARRIVED AT 18:00 VS'S TAKEN GAVE WATER AND CLEAR LIQUID DIET MENU PATIENT WANTED FOOD WAS GIVEN SNACK PACK WITH SANDWICH CHIPS AND FRUIT CUP. PATIENT ATE 100%. NO N&V. NO PAIN OR RESP DISTRESS. IV NURSE UP TO PUT ALTAPASE IN [facility] PICC,HAS BEEN X-RAYED WAS PUT IN 2 MONTHS AGO.IV NURSE CHANGED IV DRESSING. HAS O2 AT 2L/NC. BLOOD SUGAR WAS 162. DRESSING INTACT TO RIGHT LOWER EXTREMITY. HAS SCD TO LEFT LE. NOT RIGHT PER REQUEST.
--- NOTE | 2019-04-15 03:03 | NUR ---
ASSUMED PATIENT CARE ON 04/14/19 AT 1925. PT IS ALERT AND ORIENTED X 4. PT HAS COMPALINTS OF PAIN ON HIS RIGHT FOOT. PAIN MEDS WERE ADMINISTERED. WHEN REASSESSED PATIENT WAS ASLEEP. FALL PRECAUTION IN PLACE. BED ALARM ON AND BED IN LOW POSITION. CALL LIGHT IS WITHIN REACH. THE FIANCE IS IN THE ROOM WITH THE PATIENT. PATIENT IS A DIABETIC. BLOOD SUGAR WAS HIGH. I TRIED TEACHING / EDUCATING ON A HEALTHY DIET OR DIET CHANGES. PT SAID THAT ANYTHING HELATHY IS NOT AN OPTION. THE PATIENT HAS A GOAL TO STILL BE ABLE TO WALK. PT RECEIVED SCHEDULED MEDS. PT IS ALSEEP IN ROOM. WILL CONTINUE TO MONITOR.
[2019-04-15 03:58] VITALS: BP 115/70
[2019-04-15 06:05] LABS: HEMATOCRIT 39.6 % (42.0-52.0); HEMOGLOBIN 13.4 gm/dL (14.0-18.0)
[2019-04-15 06:14] LABS: POTASSIUM 5.2 mmol/L (3.5-5.1)
[2019-04-15 07:10] VITALS: BP 117/62
[2019-04-15 11:05] LABS: HEMATOCRIT 37.3 % (42.0-52.0); HEMOGLOBIN 12.5 gm/dL (14.0-18.0); MCH 33.1 pg (26.0-34.0); MCHC 33.6 g/dL (28.0-37.0); MCV 98.4 fL (80.0-100.0); RBC 3.79 mil/uL (4.50-6.00); RDW 14.4 % (10.5-14.5); WBC 12.5 thou/uL (4.0-11.0)
[2019-04-15 11:20] LABS: ALBUMIN 3.4 g/dL (3.4-5.0); CALCIUM 8.9 mg/dL (8.5-10.1); CREATININE 1.3 mg/dL (0.7-1.3); MAGNESIUM 2.1 mg/dL (1.8-2.4); PHOSPHORUS 3.1 mg/dL (2.5-4.9); POTASSIUM 4.9 mmol/L (3.5-5.1); TOTAL BILIRUBIN 0.3 mg/dL (<0.1-1.0); TOTAL PROTEIN 7.3 g/dL (6.4-8.2)
[2019-04-15 16:10] VITALS: BP 119/73
--- NOTE | 2019-04-15 19:46 | NUR ---
PATIENT ALERT AND ORIENTED WITH SIGNIFICANT OTHER AT BEDSIDE. PATIENT HAS MANY QUESTIONS AND REQUESTS FROM STAFF. WITH SIGNIFICANT OTHER IN ROOM, UNSURE IF COMPLIANT WITH DIETARY RESTRICTIONS AND STRONG SMELL OF TOBACCO SMOKE IN THE ROOM THIS AM. PLACED ICE ON FOOT. WOUND CARE, DR. HAMILTON RE-DRESSED FOOT. DR. MARQUEZ INDICATED WILL WAIT FOR DISCHARGE UNTIL WEDNESDAY WHEN BLOOD CULTURES LAB AVAILABLE. PATIENT REFUSED XERALTO INDICATING HE USUALLY TAKES IT IN THE MORNING. RE-SCHEDULE IT FOR THE AM AND ONLY TAKES 20MG TAB DAILY.
[2019-04-15 20:36] VITALS: BP 93/49
[2019-04-15 21:23] VITALS: BP 120/68
--- NOTE | 2019-04-16 04:40 | NUR ---
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
[2019-04-16 07:29] LABS: HEMATOCRIT 34.5 % (42.0-52.0); HEMOGLOBIN 11.4 gm/dL (14.0-18.0); MCH 33.7 pg (26.0-34.0); MCHC 33.1 g/dL (28.0-37.0); MCV 101.9 fL (80.0-100.0); RBC 3.38 mil/uL (4.50-6.00); RDW 14.9 % (10.5-14.5); WBC 9.8 thou/uL (4.0-11.0)
[2019-04-16 07:37] LABS: ANION GAP < 0 mmol/L (7-16); BUN 34 mg/dL (7-18); CALCIUM 8.7 mg/dL (8.5-10.1); CHLORIDE 100 mmol/L (98-107); CO2 34 mmol/L (21-32); CREATININE 1.1 mg/dL (0.7-1.3); GLUCOSE 138 mg/dL (74-106); POTASSIUM 3.9 mmol/L (3.5-5.1); SODIUM 133 mmol/L (136-145)
[2019-04-16 09:13] VITALS: BP 147/94
--- NOTE | 2019-04-16 14:59 | NUR ---
PT A&OX4. JUAN SINGLE LUMEM PICC INTACT. RIGHT FOOT WITH DRSG WITH BRYAN WRAP HAS FRESH BLOOD. PATIENT AMBULATES WITH WALKER, GAIT BELT AND PT. TOLERATIN PAING WITH TORDOL TODAY. WILL CONT POC.
--- NOTE | 2019-04-16 15:14 | HC ---
[facility] [place] [address] CONSULTATION Name: GLO BORGES Room #: 442-P ADM IN M.R.#: [id number] Admission: 04/14/19 Attend Phys: Skip Walden MD Discharge: Date of : 72 Report #: [id number] THIS REPORT FOR: //name// CC: Skip Walden DATE OF SERVICE: 04/15/2019 INFECTIOUS DISEASES CONSULTATION REASON FOR CONSULTATION: I was asked to evaluate concerning right mid foot osteomyelitis. HISTORY OF PRESENT ILLNESS: The patient was a 48-year-old diabetic with vascular disease and peripheral neuropathy. He developed a wound to the lateral aspect of his right mid foot. This has progressed. Initial cultures revealed Enterococcus and Bacteroides. This was while on antibiotic therapy. He was seen 6 weeks ago, placed on IV antibiotic therapy. He completed a 2-week course of Zyvox and ertapenem followed by continued ertapenem dosing. He has a history of PENICILLIN allergy with swelling. He was rehospitalized first part of February with a septic episode. Cultures were negative from this. Received IV fluids and improved. He was therefore continued on ertapenem. Wound has failed to heal. Still has exposed bone to the lateral foot. Repeat imaging confirmed osteomyelitis of the fifth metatarsal and taken back to surgery yesterday where he underwent right foot lateral ray amputation along with partial amputation of the cuboid. Postoperatively, he has been afebrile. Pain is reasonably controlled. REVIEW OF SYSTEMS: No cardiopulmonary, GI or issues. He has a left upper extremity PICC, which is functioning well. A 10-point review was negative other than what has been described above. ALLERGIES: PENICILLIN. MEDICATIONS: As noted on his MAR including meropenem and vancomycin. PAST MEDICAL HISTORY, FAMILY HISTORY AND SOCIAL HISTORY: Unchanged from his history and physical and that of my previous consultation last month. PHYSICAL EXAMINATION: VITAL SIGNS: He is afebrile, hemodynamically stable. GENERAL: He is alert and cooperative and pleasant, in no acute distress. SKIN: Right foot was in surgical wrap. Toes were warm to touch. Decreased sensation from his peripheral neuropathy. EYES: Without scleral icterus. MOUTH: Without mucositis. [facility] [address] [place] [address] CONSULTATION Name: GLO BORGES Room #: 442-P ADM IN M.R.#: [id number] Admission: 04/14/19 Attend Phys: Skip Walden MD Discharge: Date of : 72 Report #: [id number] NECK: Supple. LUNGS: Clear. HEART: Regular, without murmur, gallop or rub. ABDOMEN: Soft and nontender. EXTREMITIES: Left upper extremity PICC without erythema or drainage. LABORATORY STUDIES: Sodium 134, potassium 4.9, bicarbonate 27, creatinine 1.3. Liver function tests normal. Hemoglobin 12.5, white count 12.5, platelet count 201,000. No cultures obtained from the time of surgery. Previous wound cultures from 02/12/2019, bacteroides species and Enterococcus casseliflavus sensitive to penicillin. IMPRESSION: 1. A 48-year-old with diabetes, peripheral neuropathy, peripheral vascular disease, status post fourth and fifth ray amputation with partial cuboid resection. He is postoperative day #1. 2. Congestive heart failure, controlled. 3. Degenerative arthritis. 4. Benign prostatic hypertrophy. 5. Hyperlipidemia. 6. Previous stroke. 7. Right leg DVT. 8. Tobacco use. RECOMMENDATIONS: We will continue vancomycin and meropenem postoperatively. Await path reports from surgery yesterday. Anticipate discharge first of next week. <ELECTRONICALLY SIGNED> By: Elieser Billingsley MD 04/16/19 1514 1342 1414 Elieser Billingsley MD /nt
[2019-04-16 18:49] VITALS: BP 98/53
--- NOTE | 2019-04-16 19:11 | HC ---
[facility] [place] [address] CONSULTATION Name: GLO BORGES Room #: 442-P ADM IN M.R.#: [id number] Admission: 04/14/19 Attend Phys: Skip Walden MD Discharge: Date of : 72 Report #: [id number] THIS REPORT FOR: //name// CC: Skip Walden DATE OF SERVICE: 04/15/2019 WOUND CARE CONSULTATION AT [facility]. REASON FOR CONSULTATION: Diabetes mellitus type 2 with osteomyelitis and continued infection of right foot in the setting of peripheral vascular disease, status post right foot fourth and fifth ray amputation yesterday by Dr. Walden. HISTORY OF PRESENT ILLNESS: The patient is a diabetic patient known to the [facility] from his care at [facility] approximately one month ago. Gentleman suffers from diabetes mellitus type 2, hypertension, history of deep vein thrombosis of right leg, history of cerebrovascular accident, history of peripheral artery disease with stents in the left lower extremity and previous left foot transmetatarsal amputation with peripheral neuropathy and tobacco abuse. He was surgically treated by Dr. Walden approximately 1 month ago for infection of the right foot. He returns with continued osteomyelitis and infection of the right foot and indeed yesterday did undergo right closed ray amputation of the right fourth and fifth toe. Wound care is consulted for postoperative care. The patient remains on IV antibiotics for osteomyelitis. ALLERGIES: PENICILLIN. PAST MEDICAL HISTORY: Diabetes mellitus type 2, diabetic peripheral neuropathy, hypertension, status post cerebrovascular accident, peripheral artery disease, status post stenting to the left lower extremity, history of right lower extremity deep venous thrombosis, peripheral neuropathy, chronic back pain, tobacco abuse. SOCIAL HISTORY: The patient is medically disabled. PAST SURGICAL HISTORY: Status post left foot transmetatarsal amputation. Status post stents to the left lower extremity for peripheral artery disease 2015. Low back surgery 2016. Surgery for herniated disk. REVIEW OF SYSTEMS: The patient's mobility impaired by his feet. PHYSICAL EXAMINATION: GENERAL: Shows an obese, middle-aged male. HEENT: Mucous membranes are moist. [facility] [address] [place] [address] CONSULTATION Name: GLO BORGES Room #: 442-P ADM IN M.R.#: [id number] Admission: 04/14/19 Attend Phys: Skip Walden MD Discharge: Date of : 72 Report #: [id number] NECK: Supple. He is alert and conversant. LUNGS: Respirations are unlabored. ABDOMEN: Obese. EXTREMITIES: Examination of the lower extremities shows status post healed transmetatarsal amputation of the left foot. Examination of the right foot shows surgical bandages, Vinicius dressing and all surgical bandages are removed. Wound was inspected. The patient has a 15-cm long surgical incision in the lateral aspect of the right foot status post right foot fourth and fifth toe amputation, Riesel drain comes out of the wound at both ends and some old blood draining from the aspect more near the heel. Suture line is intact. No obvious cellulitis. No foul odor. Some fresh and recent old blood draining on the surgical dressings. Dressings were placed with Xeroform gauze, ABD, Kerlix wrap and an Vinicius. IMPRESSION: 1. Diabetes mellitus type 2 with foot ulcer. 2. Osteomyelitis of the right foot, status post right fourth and fifth toe amputation yesterday. Continue IV antibiotics. 3. Peripheral vascular disease with peripheral stenting of the left lower extremity. 4. Status post left foot transmetatarsal amputation. 5. Diabetic peripheral neuropathy. 6. Tobaccoism. 7. History of right leg deep venous thrombosis. 8. Status post cerebrovascular accident. 9. Immobility. PLAN: We will watch surgical wound in the postoperative phase, supervised dressing changes, continue IV antibiotics. <ELECTRONICALLY SIGNED> By: Leeroy López MD 04/16/19 1911 1212 1256 Leeroy López MD /nt
[2019-04-16 20:08] VITALS: BP 105/58
--- NOTE | 2019-04-17 01:45 | NUR ---
ASSUMED PT CARE ON 04/16/19 AT 1910. PATIENT HAS C/O PAIN IN HIS RIGHT FOOT. PAIN MEDICATION WAS ADMINISTERED. PT STATES THAT IT FEELS LIKE SOMEONE IS STOMPING ON HIS FOOT. PT STATES THAT THERE WAS NO PAIN RELIEF. I ASKED HIM IF HE WANTED ME TO GET SOMETHING ELSE HE TOLD ME NO. SCHEDULED MEDICATION WAS ADMINISTERED. PT RECEIVED 40 UNITS OF INSULIN. WILL CONTINUE TO MONITOR PT.
[2019-04-17 05:30] VITALS: BP 202/54
[2019-04-17 05:55] VITALS: BP 102/54
--- NOTE | 2019-04-17 06:24 | NUR ---
ASSUMED PT CARE ON 04/16/19 AT 1910. PT HAS C/O PAIN IN HIS RIGHT FOOT. PAIN MEDICATION WAS ADMINITERED. PT STATES THAT IT FEELS LIKE SOMEONE IS STOMPING ON HIS FOOT. PT STATES THAT THERE WAS NO PAIN RELIEF. I AKED HIM IF HE WANTED ME TO GET SOMETHING ELSE, HE TOLD ME NO. SCHEDULED MEDICATION WAS ADMINISTERED. PT'S BLOOD SUGAR WAS 132. PT REFUSED LISPRO. PER PT REQUEST I GAVE 40 UNITS OF LANTUS.
[2019-04-17 07:26] VITALS: BP 127/79
[2019-04-17] MEDS ORDERED: NORCO 5-325 TA1 EAC1 PO (12:17)
--- NOTE | 2019-04-17 12:22 | O ---
[facility] [place] [address] OPERATIVE REPORT Name: GLO BORGES Room #: 442-P [facility] IN M.R.#: [id number] Admission: 04/14/19 Attend Phys: Skip Walden MD Discharge: Date of : 72 Report #: [id number] THIS REPORT FOR: //name// CC: Skip Walden DATE OF SERVICE: 04/14/2019 PREOPERATIVE DIAGNOSIS: Right mid and hindfoot osteomyelitis laterally. POSTOPERATIVE DIAGNOSIS: Right mid and hindfoot osteomyelitis laterally. PROCEDURE: Right foot lateral ray amputation along with the partial amputation of the cuboid. SURGEON: Skip Walden M.D. DIGITAL COMPUTER OPERATOR: Yumiko Cuellar. ANESTHESIA: General. ESTIMATED BLOOD LOSS: Minimal. DRAINS: One Fernwood drain was left. COMPLICATIONS: There were no complications. TOURNIQUET TIME: 30 minutes. DESCRIPTION OF PROCEDURE: The patient brought to the operating room where he was placed under general anesthesia. Once under adequate general anesthesia, his right lower extremity was prepped and draped in sterile manner. The extremity was elevated and tourniquet placed to 300 mmHg. A racquet-shaped incision was made about the fourth and fifth metatarsals extending proximally, laterally to the proximal cuboid. This then did excise the patient's previous wound over his cuboid and fifth metatarsal. This was taken directly down to the bone. The fourth and fifth metatarsals were then disarticulated releasing any soft tissue with a 10 blade. The lateral rays were then amputated. The wound was then irrigated copiously. A sagittal saw was used to resect a large portion of the lateral cuboid as well to allow wound closure. The wound was then closed over a Fernwood drain with 2-0 nylon suture. The wound was dressed with Xeroform, 4 x 4s, and sterile soft compressive dressing was placed. Tourniquet was let down at approximately 30 minutes. Toes were pink and warm with good [address] [address] OPERATIVE REPORT Name: KATERINAGLO EVANGELISTA Room #: 442-P [facility] IN M.R.#: [id number] Admission: 04/14/19 Attend Phys: Skip Walden MD Discharge: Date of : 72 Report #: [id number] capillary refill. There were no complications from the procedure. The patient tolerated the procedure well and went to the recovery room without incident. <ELECTRONICALLY SIGNED> By: kSip Walden MD 04/17/19 1222 1627 1651 Skip Walden MD /nt
--- NOTE | 2019-04-17 13:13 | NUR ---
INITIAL ASSESSMENT: Pt evaluated for d/c planning needs. Reviewed chart and spoke with nurse and pt. Pt is alert and oriented. Pt is staying with his friend in 1 level duplex. Pt was independent with ADL's and used walker or crutches for ambulation. Pt is currently on service with [facility] with [facility] through [employer]. Pt to d/c home today. Pt is wanting knee scooter, which apparently is not covered by insurance. Will ask production planner scheduler to fax referral to [facility] and [facility] when available.
[2019-04-17 13:29] VITALS: BP 127/79
[2019-04-17 15:27] VITALS: BP 127/79
[2019-04-17] MEDS ORDERED: MERREM1 GM IV (17:26)
--- NOTE | 2019-04-17 20:38 | NUR ---
Assumed pt care at 7am.Pt in bed sleeping till 9am.Rn woke pt up for am care amd meds.Pt tolerated med and diet.Later this shift Dr Billingsley and luis manuel here, dc order noted.Paula change done to rt foot as ordered.retail branch manager arranged for iv antibiotic for home use.At 1845,pt dc home with significant other.Pt pain rx was accidentally left in chart.pt sig.other called and message left. Rx was left in manila envelop to be grain picker in am.
--- NOTE | 2019-04-20 14:06 | PATH ---
[facility] [address] [address] PATHOLOGY RPT PROCEDURE Name: KATERINAGLO EVANGELISTA Room #: 442-P DIS IN M.R.#: [id number] Admission: 04/14/19 Date of : 72 Discharge: 04/17/19 Report #: [id number] Path Case #: [id number] [facility] Accession Number: [id number] . 01 Material submitted: . foot - RIGHT LATERAL RAY AMPUTATION. Modifiers: right . 01 Clinical history: . Non-pressure chronic ulcer of other parts of left foot, necrosis of muscle . 02 Diagnosis: Right lateral ray amputation, transmetatarsal amputation: - Skin and subcutaneous tissue showing ulceration associated with gangrenous necrosis and marked acute inflammation. - Acute inflammation extends into underlying bone associated with acute osteomyelitis and osteonecrosis. - Surgical margin of bone viable and unremarkable. (IUV:[place]; 04/19/2019) MBR 04/19/2019 1615 Local . 02 Electronically signed: . Eden Landaverde MD, Pathologist NPI- [id number] . 01 Gross description: . The specimen is received in formalin, labeled "Glo Villagomez, right lateral ray amputation". Received are two amputated digits with attached metatarsals, consistent with toes 4 and 5, measuring 17.8 x 4.1 x 3.8 cm in greatest dimensions. The bone margins are smooth and convex in appearance, consistent with disarticulation. The nails are present display in a pale beaulieu and slightly thickened appearance. Along the lateral aspect of toe 5, there is a poorly circumscribed, irregular in contour and car-brown, necrotic-appearing lesion measuring 6.1 x 2.5 cm the digits are . The bone margin of toe 4 is inked black and the bone margin of toe 5 is inked blue. . Also received within the specimen container is an additional segment of bone with a slight amount of attached articular surface measuring 4.1 x 2.5 x 1.4 cm in greatest dimensions. The disarticulated margin is inked red. The specimen is submitted representatively as follows: . A1 longitudinal cross-section through bone margin of toe 4, following decalcification A2 cross-section of toe 5 through lesion on lateral aspect, to include underlying bone, following decalcification A3 longitudinal cross-section through bone margin of toe 5, following decalcification [address] [address] PATHOLOGY RPT PROCEDURE Name: GLO VILLAGOMEZ Room #: 442-P DIS IN M.R.#: [id number] Admission: 04/14/19 Date of : 72 Discharge: 04/17/19 Report #: [id number] Path Case #: [id number] A4 employer relations representative section of lesion on lateral aspect of specimen, to show relationship with closest skin margin (yellow ink) A5 employer relations representative section of separately submitted segment of bone, following decalcification. (CAA; 04/18/2019) QAC/QAC 04/19/2019 1613 Local . 02 Pathologist provided ICD-10: M86.171, M87.877, L97.519 . 02 CPT . 386498, [id number] Specimen Comment: A courtesy copy of this report has been sent to Specimen Comment: [phone], . Specimen Comment: Report sent to / DR HERNANDEZ Performed at: [address] [facility], [place], [place] [id number] MD Rubén Espinoza MD Phone: [phone] Performed at: [address] [facility] [id number] MD Eden Landaverde MD Phone: [phone]
--- NOTE | 2019-04-21 16:32 | NUR ---
RECEIVED CALL BACK FROM PT SAYING HE IS NEED A WC FOR HOME. DISCUSSED CASE WITH DR MITCHELL. ORDER OBTAINED FOR WC & FAXED TO [facility] AND S/W [facility] MULTIPLE TIMES TO GET THIS ARRANGED. S/W PT TO NOTIFY HIM THAT WC WOULD BE DELIVERED TODAY OR TOMORROW. SCRIPT OBTAINED.
== END 2019-04-17 18:29 | disposition home health service (06) | DRG 617 ==
LOC: PRE 12:01 → TBA 13:08 → PRE 15:11 → 4S 17:59
PROVIDERS: Internal Medicine; ADMIT Orthopaedic Surgery Foot and Ankle Surgery
PROC: 0Y6M0ZF Detachment at Right Foot, Partial 5th Ray, Open Approach (ICD-10-PCS; principal; 2019-04-14)
PROC: 0Y6M0ZD Detachment at Right Foot, Partial 4th Ray, Open Approach (ICD-10-PCS; principal; 2019-04-14)
PROC: 02HV33Z Insertion of Infusion Device into Superior Vena Cava, Percutaneous Approach (ICD-10-PCS; principal; 2019-04-14)
DX: E11.69 Type 2 diabetes mellitus with other specified complication (principal); M86.8X7 Other osteomyelitis, ankle and foot; I50.22 Chronic systolic (congestive) heart failure; I82.401 Acute embolism and thrombosis of unspecified deep veins of right lower extremity; E11.42 Type 2 diabetes mellitus with diabetic polyneuropathy; E11.649 Type 2 diabetes mellitus with hypoglycemia without coma; E11.51 Type 2 diabetes mellitus with diabetic peripheral angiopathy without gangrene; I11.0 Hypertensive heart disease with heart failure; M19.90 Unspecified osteoarthritis, unspecified site; M70.21 Olecranon bursitis, right elbow; E78.5 Hyperlipidemia, unspecified; N40.0 Benign prostatic hyperplasia without lower urinary tract symptoms; E11.621 Type 2 diabetes mellitus with foot ulcer; Z88.0 Allergy status to penicillin; Z79.899 Other long term (current) drug therapy; Z86.73 Personal history of transient ischemic attack (TIA), and cerebral infarction without residual deficits; Z95.820 Peripheral vascular angioplasty status with implants and grafts; Y93.89 Activity, other specified
CPT/HCPCS: 10102; 50010; 50101; 50386; 50951; 56525; 57091; 57180; 62110; 62900; 70005

== ENCOUNTER → 2019-05-01 | Outpatient (CLI) | payer OTHER ==
[~2019-05-01] MED LIST changes: +MERREM1 GM IV; +NORCO 5-325 TA1 EAC1 PO
== END ==
LOC: HYPER 07:27
DX: T87.89 Other complications of amputation stump (principal); E11.621 Type 2 diabetes mellitus with foot ulcer; L97.516 Non-pressure chronic ulcer of other part of right foot with bone involvement without evidence of necrosis; T23.261D Burn of second degree of back of right hand, subsequent encounter; L84 Corns and callosities; E11.51 Type 2 diabetes mellitus with diabetic peripheral angiopathy without gangrene; E11.43 Type 2 diabetes mellitus with diabetic autonomic (poly)neuropathy; R60.0 Localized edema; K21.9 Gastro-esophageal reflux disease without esophagitis; M19.90 Unspecified osteoarthritis, unspecified site; M19.042 Primary osteoarthritis, left hand; M19.041 Primary osteoarthritis, right hand; F17.200 Nicotine dependence, unspecified, uncomplicated; F12.90 Cannabis use, unspecified, uncomplicated; Z79.4 Long term (current) use of insulin; Z86.73 Personal history of transient ischemic attack (TIA), and cerebral infarction without residual deficits; Z95.818 Presence of other cardiac implants and grafts; Z89.422 Acquired absence of other left toe(s); X08.8XXD Exposure to other specified smoke, fire and flames, subsequent encounter; Y83.5 Amputation of limb(s) as the cause of abnormal reaction of the patient, or of later complication, without mention of misadventure at the time of the procedure